=== PATIENT | female | born 1955 | race Caucasian/White ===

== ENCOUNTER 2018-10-19 11:09 | Inpatient (IN) | payer MEDICAID, OTHER ==
[~2018-10-19] VITALS: Ht 165.1 cm; Wt 86.2 kg
[~2018-10-19 11:09] MED LIST: ARIP10TA10; DULO60CA6; GABA300C; HYDR-1666; MONT10TA21; MULT1TAB21; NAPR-985; PHEN100C; [UNRECOGNIZED DRUG - CODE]; [UNRECOGNIZED DRUG - CODE]
--- NOTE | 2018-10-19 12:18 | ERD ---
ER Documentation Chief Complaint Chief Complaint chronic lower back pain, sent by surgeon, Dr Chester CHAHAL The patient is a 62-year-old female, presenting to the ER for admission for back surgery, sent to the ER by neurosurgeon Dr. Briggs. She has history of chronic low back pain, under pain management physician. However she is unable to tolerate the back pain any longer and wanted surgery. She denies fecal/urinary incontinence, denies fever, chills, neck pain, chest pain, abdominal pain, vomiting, complains of chronic bilateral lower extremity pain. She does not smoke nor drink denies any history of IV drug abuse. Past medical history: Asthma, chronic low back pain, chronic pain syndrome, bipolar, depression Past surgical history: Appendectomy, brain aneurysm ROS All systems reviewed and are negative except as per history of present illness. Medications Home Meds Reported Medications [Sodium ] No Conflict Check 10/19/18 Phenytoin* Sodium Extended (Dilantin*) 200 Mg Capsule, 200 MG PO BID, CAP 10/19/18 Aripiprazole* (Abilify*) 10 Mg Tablet, 10 MG PO DAILY, #30 TAB 10/19/18 Quetiapine Fumarate* (Seroquel*) 25 Mg Tablet, 25 MG PO DAILY, #30 TAB 10/19/18 Gabapentin* (Gabapentin*) 800 Mg Tablet, 800 MG PO BID, #90 TAB 10/19/18 Albuterol Sulfate* (Ventolin HFA*) 18 Gm Hfa.aer.ad, 2 PUFF INHALATION Q4H, #1 INHALER 10/19/18 Hydrochlorothiazide* (Hydrochlorothiazide*) 12.5 Mg Tablet, 12.5 MG PO DAILY, #30 TAB 10/19/18 Fluticasone/Vilanterol (Breo Ellipta 200-25 Mcg INH) 1 Each Blst.w.dev, 1 PUFF INHALATION DAILY, #1 INHALER 10/19/18 Omeprazole* (Omeprazole*) 20 Mg Capsule.dr, 20 MG PO DAILY, #30 CAP 10/19/18 Phenytoin* Sodium Extended (Dilantin*) 100 Mg Capsule, 200 MG PO BID, CAP 10/19/18 Duloxetine Hcl* (Duloxetine Hcl*) 60 Mg Capsule.dr, 120 MG PO DAILY, #30 CAP 10/19/18 Trazodone Hcl* (Desyrel*) 100 Mg Tab, 100 MG PO QHS, #30 TAB 10/19/18 Lamotrigine* (Lamotrigine*) 150 Mg Tablet, 150 MG PO BID, TAB 10/19/18 Ibuprofen* (Ibuprofen*) 800 Mg Tab, 800 MG PO TID, TAB 10/19/18 Docusate Sodium* (Colace*) 100 Mg Capsule, 100 MG PO DAILY, #30 CAP 10/19/18 Discontinued Reported Medications Hydrocodone Bit/Acetaminophen (Vicodin 5/500 Tablet) 1 Tab Tablet 12/14/10 Baclofen* (Lioresal*) 20 Mg Tab 12/14/10 Phenytoin* Sodium Extended (Dilantin*) 100 Mg Capsule 12/14/10 Naproxen* (Naprosyn*) 500 Mg Tablet 12/14/10 Multivitamins,Therapeutic (Theragran) 1 Tab Tablet 12/14/10 Montelukast Sodium* (Singulair*) 10 Mg Tablet 12/14/10 Gabapentin* (Neurontin*) 300 Mg Capsule 12/14/10 Duloxetine Hcl* (Cymbalta*) 60 Mg Capsule. 12/14/10 Calcium Carb/Vit D3/Minerals (Caltrate-600 With Vit D Tab) 1 Tab Tablet 12/14/10 Aripiprazole* (Abilify*) 10 Mg Tablet 12/14/10 Allergies Allergies: Coded Allergies: Penicillins (Verified Allergy, Mild, RASHES, 10/19/18) PMhx/Soc History of Surgery: Yes (BENIGN L BREAST TUMOR, APPY,3 VAG DELIVERIES) Anesthesia Reaction: No Hx Neurological Disorder: No Hx Respiratory Disorders: Yes (ASTHMA, 2 WEEKS AGO FOR INHALER) Hx Cardiac Disorders: No Hx Miscellaneous Medical Probl: No Hx Alcohol Use: No Hx Substance Use: No Hx Tobacco Use: Yes (QUIT 10 YEARS AGO) Physical Exam Vitals Vital Signs Date Temp Pulse Resp B/P (MAP) Pulse Ox O2 O2 Flow FiO2 Time Delivery Rate 10/19/18 85 18 150/75 97 Room Air 14:30 (100) 10/19/18 86 18 164/86 97 Room Air 12:37 (112) 10/19/18 98.4 82 18 168/86 95 11:20 (113) Physical Exam Const: No acute distress. Head: Atraumatic. Eyes: Normal Conjunctiva. ENT: Normal External Ears, Nose and Mouth. Neck: Full range of motion. No meningismus. Resp: Clear to auscultation bilaterally. Cardio: Regular rate and rhythm. Abd: Soft, non distended, normal bowel sounds, non tender. Skin: No petechiae or rashes. Back: Lumbar tenderness. No crepitus/echymosis Ext: No cyanosis, or edema. Neur: Awake and alert. No focal deficit Psych: Normal Mood and Affect. Result Diagram: 10/19/18 1259 10/19/18 1259 Results 24 hrs Laboratory Tests Test 10/19/18 12:59 White Blood Count 10.2 10^3/ul Red Blood Count 4.48 10^6/ul Hemoglobin 13.5 g/dl Hematocrit 39.4 % Mean Corpuscular Volume 87.9 fl Mean Corpuscular Hemoglobin 30.1 pg Mean Corpuscular Hemoglobin Concent 34.3 g/dl Red Cell Distribution Width 12.6 % Platelet Count 218 10^3/UL Mean Platelet Volume 8.7 fl Immature Granulocytes % 0.600 % Neutrophils % 70.2 % Lymphocytes % 19.9 % Monocytes % 7.4 % Eosinophils % 1.3 % Basophils % 0.6 % Nucleated Red Blood Cells % 0.0 /100WBC Immature Granulocytes # 0.060 10^3/ul Neutrophils # 7.2 10^3/ul Lymphocytes # 2.0 10^3/ul Monocytes # 0.8 10^3/ul Eosinophils # 0.1 10^3/ul Basophils # 0.1 10^3/ul Nucleated Red Blood Cells # 0.0 10^3/ul Sodium Level 136 mmol/L Potassium Level 3.7 mmol/L Chloride Level 100 mmol/L Carbon Dioxide Level 28 mmol/L Anion Gap 8 Blood Urea Nitrogen 10 mg/dl Creatinine 0.50 mg/dl Est Glomerular Filtrat Rate mL/min > 60 mL/min Glucose Level 79 mg/dl Calcium Level 9.4 mg/dl Procedures/[facility] MEDICAL MAKING DECISION: The patient is a 62-year-old female, presenting with acute intractable back pain, was treated with [place] 10 mg p.o. for pain with good response The differential diagnoses considered include but are not limited to caudal equina syndrome, spinal abscess, DJD, diskitis, lumbar radiculopathy. Consultation: I discussed the patient with her neurosurgeon Dr. Briggs, who would like to admit her for surgical intervention EKG: Read by emergency physician Rate/Rhythm: Normal Sinus Rhythm 84 beats/min QRS, ST, T-waves: No ST elevation, no T inversion Impression: Normal EKG Departure Diagnosis: Primary Impression: Intractable back pain Condition: Stable Comments I discussed the findings with the patient. I discussed the patient with the hospitalist Dr Hernandez at 3pm who was made aware of the lab, the treatment, the patient condition. The patient is admitted to [facility] Disclaimer: Inadvertent spelling and grammatical errors are likely due to EHR/dictation software use and do not reflect on the overall quality of patient care. Also, please note that the electronic time recorded on this note does not necessarily reflect the actual time of the patient encounter. BRANDT GIBBS MD Oct 19, 2018 12:18
[2018-10-19] MEDS ORDERED: IBUP-1545 PO (13:21)
[2018-10-19] MEDS ORDERED: DOCU-144 PO (13:21)
[2018-10-19] MEDS ORDERED: DULO60CA59 PO (13:22)
[2018-10-19] MEDS ORDERED: TRAZ-150 PO (13:22)
[2018-10-19] MEDS ORDERED: LAMO150T2 PO (13:22)
[2018-10-19] MEDS ORDERED: PHEN100C PO (13:23)
[2018-10-19] MEDS ORDERED: FLUT1BLS INHALATION (13:24)
[2018-10-19] MEDS ORDERED: HYDR12.58 PO (13:24)
[2018-10-19] MEDS ORDERED: OMEP20CA16 PO (13:24)
[2018-10-19] MEDS ORDERED: GABA-528 PO (13:25)
[2018-10-19] MEDS ORDERED: ALBU18HF INHALATION (13:25)
[2018-10-19] MEDS ORDERED: QUET25TA PO (13:26)
[2018-10-19] MEDS ORDERED: HYDROCODONE/APAP (10/325) TAB PO ONE (15:30)
[2018-10-19 17:36] VITALS: Ht 165.1 cm; Wt 86.2 kg
[2018-10-19] MEDS ORDERED: SODIUM (17:55)
[2018-10-19] MEDS ORDERED: PHEN200C PO (17:55)
[2018-10-19] MEDS ORDERED: ARIP10TA12 PO (17:55)
--- NOTE | 2018-10-19 18:15 | HP ---
Date/Time of Note Date/Time of Note DATE: 10/19/18 TIME: 18:13 Assessment/Plan VTE Prophylaxis SCD applied (from Nsg): Yes Pharmacological prophylaxis: NA/contraindicated Pharm contraindication: surgical contra Lines/Catheters IV Catheter Type (from Nrsg): Saline Lock Urinary Cath still in place: No Assessment/Plan Assessment/Plan -Intractable low back pain secondary to degenerative joint disease of the lumbar spine. Continue [place] and morphine as needed for pain Dr. Briggs is following in neurosurgery consultation. -Hypertension -Asthma, continue Brio Ellipta -Bipolar disorder, continue Cymbalta and Abilify Further recommendations based on clinical course. Plan of care discussed with Dr. Xavier. Result Diagram: 10/19/18 1259 10/19/18 1259 Results 24hrs Laboratory Tests Test 10/19/18 12:59 White Blood Count 10.2 Red Blood Count 4.48 Hemoglobin 13.5 Hematocrit 39.4 Mean Corpuscular Volume 87.9 Mean Corpuscular Hemoglobin 30.1 Mean Corpuscular Hemoglobin Concent 34.3 Red Cell Distribution Width 12.6 Platelet Count 218 Mean Platelet Volume 8.7 Immature Granulocytes % 0.600 H Neutrophils % 70.2 Lymphocytes % 19.9 Monocytes % 7.4 Eosinophils % 1.3 Basophils % 0.6 Nucleated Red Blood Cells % 0.0 Immature Granulocytes # 0.060 H Neutrophils # 7.2 Lymphocytes # 2.0 Monocytes # 0.8 Eosinophils # 0.1 Basophils # 0.1 Nucleated Red Blood Cells # 0.0 Sodium Level 136 Potassium Level 3.7 Chloride Level 100 Carbon Dioxide Level 28 Anion Gap 8 Blood Urea Nitrogen 10 Creatinine 0.50 Est Glomerular Filtrat Rate mL/min > 60 Glucose Level 79 Calcium Level 9.4 HPI/ROS Admit Date/Time Admit Date/Time Oct 19, 2018 at 15:02 Hx of Present Illness Patient is 62-year-old female with history of chronic lower back pain, history of asthma,depression and bipolar disorder, hypertension, history of intracranial hematoma status post evacuation at [facility] in 1999 for which patient on Dilantin for last 19 years, details of operation are not available. Patient has a long history of chronic lower back pain which got significantly worse over last months, patient failed conservative management with pain medication and physical therapy and patient was evaluated by Dr. Briggs in neurosurgery consultation. Patient underwent MRI of the lumbar spine and referred by neurosurgeon to emergency room. Patient complains of severe lower abdominal pain, however, denies any chest pain denies shortness of breath denies nausea vomiting diarrhea. Patient will be admitted for further evaluation and management. ROS 12 point review of system is negative except for what mentioned in HPI PMH/Family/Social Past Medical History Medical History: hypertension, other (Small, depression, bipolar disorder, history of intracranial hematoma status post evacuation of hematoma) Coded Allergies: Penicillins (Verified Allergy, Mild, RASHES, 10/19/18) Past Surgical History Past Surgical Hx: other (Status post evacuation of intracranial hematoma in 1999 at [facility]) Family History Significant Family History: no pertinent family hx Social History Alcohol Use: none Smoking Status: Never smoker Drug Use: none Exam/Review of Systems Vital Signs Vitals Vital Signs Date Temp Pulse Resp B/P (MAP) Pulse Ox O2 O2 Flow FiO2 Time Delivery Rate 10/19/18 83 18 148/74 93 Room Air 16:40 (98) 10/19/18 98.4 11:20 Exam Constitutional: alert, oriented Head: normocephalic Neck: supple Respiratory: clear to auscultation Cardiovascular: nl pulses Gastrointestinal: soft, non-tender Musculoskeletal: other (Low back pain with radiation to bilateral lower extremities) Extremities: normal pulses Neurological: nl mental status Skin: nl MICK Laird Oct 19, 2018 18:15
[2018-10-19] MEDS ORDERED: HYDROCODONE/APAP (5/325) TAB PO PRN (18:30)
[2018-10-19] MEDS ORDERED: DOCUSATE SODIUM 100 MG CAP PO PRN (18:30)
[2018-10-19] MEDS ORDERED: [UNRECOGNIZED DRUG - OTHER] XX SCH (20:00)
[2018-10-19 20:02] VITALS: BP 162/77; PULSE 73; RESP 18
[2018-10-19] MEDS ORDERED: PHENYTOIN 100 MG CAP PO SCH (21:00)
[2018-10-19] MEDS ORDERED: ALBUTEROL HFA 8 GM INHALER INH SCH (21:00)
[2018-10-19] MEDS: IBUPROFEN 800 MG TAB PO SCH (21:05)
[2018-10-19] MEDS: GABAPENTIN 400 MG CAP PO SCH (21:05)
[2018-10-19] MEDS: SODIUM CHLORIDE 5% BOTH EYES SCH (21:05)
[2018-10-19] MEDS: LAMOTRIGINE 100 MG TAB PO SCH (21:06)
[2018-10-19] MEDS: FAMOTIDINE 20 MG TAB PO SCH (21:06)
[2018-10-19] MEDS: traZODone 100 MG TAB PO SCH (21:06)
[2018-10-19] MEDS: PHENYTOIN 100 MG CAP PO SCH (21:06)
[2018-10-20 01:57] VITALS: BP 170/77; PULSE 80; RESP 18
[2018-10-20] MEDS: HYDROCODONE/APAP (5/325) TAB PO PRN ×2 (04:43→12:12)
[2018-10-20] MEDS ORDERED: PANTOPRAZOLE (EC) 40 MG TAB PO SCH (06:00)
[2018-10-20 07:49] VITALS: BP 163/111; PULSE 73; RESP 19
[2018-10-20] MEDS: QUETIAPINE 25 MG TAB PO SCH (09:00)
[2018-10-20] MEDS: IBUPROFEN 800 MG TAB PO SCH ×2 (09:17→13:00)
[2018-10-20] MEDS: PHENYTOIN 100 MG CAP PO SCH ×2 (09:18→20:35)
[2018-10-20] MEDS: DOCUSATE SODIUM 100 MG CAP PO SCH (09:19)
[2018-10-20] MEDS: ARIPIPRAZOLE 10 MG TAB PO SCH (09:19)
[2018-10-20] MEDS: DULOXETINE 30 MG CAP DR PO SCH (09:19)
[2018-10-20] MEDS: GABAPENTIN 400 MG CAP PO SCH ×2 (09:20→20:35)
[2018-10-20] MEDS: FAMOTIDINE 20 MG TAB PO SCH ×2 (09:20→20:35)
[2018-10-20] MEDS: LAMOTRIGINE 100 MG TAB PO SCH ×2 (09:21→20:36)
[2018-10-20] MEDS: HYDROCHLOROTHIAZIDE 12.5 MG CAP PO SCH (09:21)
[2018-10-20] MEDS: morphine 2 MG INJ IV PRN ×3 (09:22→21:22)
[2018-10-20] MEDS: FLUTICASONE/VILANTEROL 200-25 INH DEVICE INH SCH (09:22)
[2018-10-20] MEDS: SODIUM CHLORIDE 5% BOTH EYES SCH ×2 (09:22→20:25)
[2018-10-20 09:28] VITALS: BP 148/67
--- NOTE | 2018-10-20 11:45 | PN ---
Date/Time of Note Date/Time of Note DATE: 10/20/18 TIME: 11:43 Assessment/Plan VTE Prophylaxis Risk score (from Ns)>0 risk: 3 SCD applied (from Ns): Yes Pharmacological prophylaxis: NA/contraindicated Pharm contraindication: surgical contra Lines/Catheters IV Catheter Type (from Nrsg): Saline Lock Urinary Cath still in place: No Assessment/Plan Hospital Course Patient is awake alert stated that her pain is better controlled on current regimen, awaits for neurosurgery evaluation. Assessment/Plan -Intractable low back pain secondary to degenerative joint disease of the lumbar spine. Continue [place] and morphine as needed for pain Dr. Briggs is following in neurosurgery consultation. -Hypertension, renew hydralazine as needed. -Asthma, continue Brio Ellipta -Bipolar disorder, continue Cymbalta and Abilify Further recommendations based on clinical course. Plan of care discussed with Dr. Xavier. Result Diagram: 10/20/187 10/20/187 Results 24hrs Laboratory Tests Test 10/19/18 12:59 10/20/18 04:47 White Blood Count 10.2 7.2 # Red Blood Count 4.48 4.42 Hemoglobin 13.5 13.6 Hematocrit 39.4 39.3 Mean Corpuscular Volume 87.9 88.9 Mean Corpuscular Hemoglobin 30.1 30.8 Mean Corpuscular Hemoglobin Concent 34.3 34.6 Red Cell Distribution Width 12.6 12.7 Platelet Count 218 211 Mean Platelet Volume 8.7 8.6 Immature Granulocytes % 0.600 H 0.600 H Neutrophils % 70.2 58.7 Lymphocytes % 19.9 30.4 Monocytes % 7.4 7.3 Eosinophils % 1.3 2.3 Basophils % 0.6 0.7 Nucleated Red Blood Cells % 0.0 0.0 Immature Granulocytes # 0.060 H 0.040 H Neutrophils # 7.2 4.3 Lymphocytes # 2.0 2.2 Monocytes # 0.8 0.5 Eosinophils # 0.1 0.2 Basophils # 0.1 0.1 Nucleated Red Blood Cells # 0.0 0.0 Sodium Level 136 140 Potassium Level 3.7 3.5 Chloride Level 100 103 Carbon Dioxide Level 28 29 Anion Gap 8 8 Blood Urea Nitrogen 10 8 Creatinine 0.50 0.46 Est Glomerular Filtrat Rate mL/min > 60 > 60 Glucose Level 79 90 Calcium Level 9.4 9.5 Total Bilirubin 0.3 Direct Bilirubin 0.00 Indirect Bilirubin 0.3 Aspartate Amino Transf (AST/SGOT) 13 L Alanine Aminotransferase (ALT/SGPT) 11 L Alkaline Phosphatase 105 Total Protein 6.4 Albumin 3.7 Globulin 2.70 Albumin/Globulin Ratio 1.37 Exam/Review of Systems Exam Vitals Vital Signs Date Temp Pulse Resp B/P (MAP) Pulse Ox O2 O2 Flow FiO2 Time Delivery Rate 10/20/18 148/67 09:28 (94) 10/20/18 98.2 73 19 98 Room Air 07:49 Intake and Output 10/19/18 10/19/18 10/20/18 1515:00 23:00 07:00 IntakeIntake Total 480 ml 460 ml BalanceBalance 480 ml 460 ml Constitutional: alert, oriented Respiratory: clear to auscultation Cardiovascular: nl pulses Gastrointestinal: soft, non-tender Musculoskeletal: other (Low back pain) Extremities: normal pulses Neurological: nl mental status Results Results 24hrs Laboratory Tests Test 10/19/18 12:59 10/20/18 04:47 White Blood Count 10.2 7.2 # Red Blood Count 4.48 4.42 Hemoglobin 13.5 13.6 Hematocrit 39.4 39.3 Mean Corpuscular Volume 87.9 88.9 Mean Corpuscular Hemoglobin 30.1 30.8 Mean Corpuscular Hemoglobin Concent 34.3 34.6 Red Cell Distribution Width 12.6 12.7 Platelet Count 218 211 Mean Platelet Volume 8.7 8.6 Immature Granulocytes % 0.600 H 0.600 H Neutrophils % 70.2 58.7 Lymphocytes % 19.9 30.4 Monocytes % 7.4 7.3 Eosinophils % 1.3 2.3 Basophils % 0.6 0.7 Nucleated Red Blood Cells % 0.0 0.0 Immature Granulocytes # 0.060 H 0.040 H Neutrophils # 7.2 4.3 Lymphocytes # 2.0 2.2 Monocytes # 0.8 0.5 Eosinophils # 0.1 0.2 Basophils # 0.1 0.1 Nucleated Red Blood Cells # 0.0 0.0 Sodium Level 136 140 Potassium Level 3.7 3.5 Chloride Level 100 103 Carbon Dioxide Level 28 29 Anion Gap 8 8 Blood Urea Nitrogen 10 8 Creatinine 0.50 0.46 Est Glomerular Filtrat Rate mL/min > 60 > 60 Glucose Level 79 90 Calcium Level 9.4 9.5 Total Bilirubin 0.3 Direct Bilirubin 0.00 Indirect Bilirubin 0.3 Aspartate Amino Transf (AST/SGOT) 13 L Alanine Aminotransferase (ALT/SGPT) 11 L Alkaline Phosphatase 105 Total Protein 6.4 Albumin 3.7 Globulin 2.70 Albumin/Globulin Ratio 1.37 Medications Medication Current Medications Ondansetron HCl (Zofran Inj) 4 mg Q6H PRN IV NAUSEA/VOMITING; Start 10/19/18 at 18:30 Acetaminophen/ Hydrocodone Bitart ([place] (5/325)) 1 tab Q6H PRN PO .MOD PAIN 4- 6; Start 10/19/18 at 18:30 Acetaminophen/ Hydrocodone Bitart ([place] (5/325)) 2 tab Q6H PRN PO .SEVERE PAIN 7-10 Last administered on 10/20/18at 04:43; Admin Dose 2 TAB; Start 10/19/18 at 18:30 Morphine Sulfate (morphine) 2 mg Q4H PRN IV .SEVERE PAIN 7-10 Last administered on 10/20/18at 09:22; Admin Dose 2 MG; Start 10/19/18 at 18:30 Docusate Sodium (Colace) 100 mg Q12H PRN PO .CONSTIPATION; Start 10/19/18 at 18:30 Zolpidem Tartrate (Ambien) 5 mg QHS PRN PO .INSOMNIA; Start 10/19/18 at 18:30 Famotidine (Pepcid) 20 mg Q12 PO Last administered on 10/20/18 09:20; Admin Dose 20 MG; Start 10/19/18 at 21:00 Aripiprazole (Abilify) 10 mg DAILY PO Last administered on 10/20/18 09:19; Admin Dose 10 MG; Start 10/20/18 at 09:00 Docusate Sodium (Colace) 100 mg DAILY PO Last administered on 10/20/18 09:19; Admin Dose 100 MG; Start 10/20/18 at 09:00 Duloxetine HCl (Cymbalta) 120 mg DAILY PO Last administered on 10/20/18 09:19; Admin Dose 120 MG; Start 10/20/18 at 09:00 Fluticasone/ Vilanterol (Breo Ellipta 200-25 Mcg Inh) 1 inh DAILY INH Last administered on 10/20/18 09:22; Admin Dose 1 INH; Start 10/20/18 at 09:00 Gabapentin (Neurontin) 800 mg BID PO Last administered on 10/20/18 09:20; Admin Dose 800 MG; Start 10/19/18 at 21:00 Hydrochlorothiazide (Hydrochlorothiazide) 12.5 mg DAILY PO Last administered on 10/20/18 09:21; Admin Dose 12.5 MG; Start 10/20/18 at 09:00 Ibuprofen (Motrin) 800 mg TID PO Last administered on 10/20/18 09:17; Admin Dose 800 MG; Start 10/19/18 at 21:00 Lamotrigine (Lamictal) 150 mg BID PO Last administered on 10/20/18 09:21; Admin Dose 150 MG; Start 10/19/18 at 21:00 Phenytoin (Dilantin) 200 mg BID PO Last administered on 10/20/18 09:18; Admin Dose 200 MG; Start 10/19/18 at 21:00 Quetiapine Fumarate (Seroquel) 25 mg DAILY PO ; Start 10/20/18 at 09:00 Trazodone HCl (Desyrel) 100 mg QHS PO Last administered on 10/19/18 21:06; Admin Dose 100 MG; Start 10/19/18 at 21:00 Patient Own Medication 1 ea BID BOTH EYES Last administered on 10/20/18 09:22; Admin Dose 1 EA; Start 10/19/18 at 21:00 Patient Own Medication 1 ea QHS BOTH EYES Last administered on 10/19/18 21:05; Admin Dose 1 EA; Start 10/19/18 at 21:00 Albuterol (Ventolin Hfa) 2 puff Q4H PRN INH SHORTNESS OF BREATH; Start 10/19/18 at 21:30 MICK MCHUGH Oct 20, 2018 11:45
[2018-10-20] MEDS ORDERED: hydrALAzine 20 MG INJ IV PRN (12:00)
[2018-10-20] MEDS: AMLODIPINE 5 MG TAB PO SCH (13:09)
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
[2018-10-20 20:16] VITALS: BP 136/62; PULSE 73; RESP 18
[2018-10-20] MEDS: traZODone 100 MG TAB PO SCH (20:35)
[2018-10-21 02:14] VITALS: BP 138/79; PULSE 76; RESP 18
[2018-10-21] MEDS: morphine 2 MG INJ IV PRN ×3 (02:28→15:09)
[2018-10-21] MEDS: HYDROCODONE/APAP (5/325) TAB PO PRN ×2 (06:38→20:39)
[2018-10-21 07:54] VITALS: BP 132/75; PULSE 74; RESP 18
[2018-10-21] MEDS: PHENYTOIN 100 MG CAP PO SCH ×2 (08:54→21:17)
[2018-10-21] MEDS: LAMOTRIGINE 100 MG TAB PO SCH ×2 (08:55→21:16)
[2018-10-21] MEDS: AMLODIPINE 5 MG TAB PO SCH (08:57)
[2018-10-21] MEDS: QUETIAPINE 25 MG TAB PO SCH ×2 (08:57→21:17)
[2018-10-21] MEDS: HYDROCHLOROTHIAZIDE 12.5 MG CAP PO SCH (08:57)
[2018-10-21] MEDS: SODIUM CHLORIDE 5% BOTH EYES SCH ×2 (08:58→21:21)
--- NOTE | 2018-10-21 11:16 | PN ---
Date/Time of Note Date/Time of Note DATE: 10/21/18 TIME: 11:10 Assessment/Plan VTE Prophylaxis Risk score (from Nsg)>0 risk: 4 SCD applied (from Nsg): Yes SCD contraindicated: low risk/ambulating Pharmacological prophylaxis: NA/contraindicated Pharm contraindication: low risk/ambulating Lines/Catheters IV Catheter Type (from Nrsg): Saline Lock [place] line still needed: No Urinary Cath still in place: No Assessment/Plan Assessment/Plan Impression Mechanical LBP with LE Radiculopathy (left > right) Ibuprofen 800mg TID x 2-3 weeks prior to admission Plan cont supportive care discussed with Dr. Raphael and Dr. Briggs, both agree to hold off on surgery until Friday due to recent Ibuprofen intake #1 ALIF L2- S1 Friday at 8am #2 Posterior L2-S1 decompression and fusion to follow in 1-2 days, possibly Friday depending on OR availability will likely need pain management consult post operatively Extensive d/w patient about all available options including surgery vs no surgery. Overall risk/complications 3-5% as preprinted in Dr. Briggs;s preop consent form thoroughly discussed. All questions answered and no guarantees given. Result Diagram: 10/20/1844610/20/18446 Subjective 24 Hr Interval Summary Free Text/Dictation Neurosurgery S: NAD Exam/Review of Systems Exam Vitals Vital Signs Date Temp Pulse Resp B/P (MAP) Pulse Ox O2 O2 Flow FiO2 Time Delivery Rate 10/21/18 98.2 74 18 132/75 94 Room Air 07:54 (94) Intake and Output 10/20/18 10/20/18 10/21/18 1515:00 23:00 07:00 IntakeIntake Total 120 ml 420 ml BalanceBalance 120 ml 420 ml Neurological: other (MS: AAOX4 CN: PERRL M: FC x 4 , no new focal def. ) Medications Medication Current Medications Ondansetron HCl (Zofran Inj) 4 mg Q6H PRN IV NAUSEA/VOMITING; Start 10/19/18 at 18:30 Acetaminophen/ Hydrocodone Bitart ([place] (5/325)) 1 tab Q6H PRN PO .MOD PAIN 4- 6; Start 10/19/18 at 18:30 Acetaminophen/ Hydrocodone Bitart ([place] (5/325)) 2 tab Q6H PRN PO .SEVERE PAIN 7-10 Last administered on 10/21/18 06:38; Admin Dose 2 TAB; Start 10/19/18 at 18:30 Morphine Sulfate (morphine) 2 mg Q4H PRN IV .SEVERE PAIN 7-10 Last administered on 10/21/18 10:21; Admin Dose 2 MG; Start 10/19/18 at 18:30 Docusate Sodium (Colace) 100 mg Q12H PRN PO .CONSTIPATION; Start 10/19/18 at 18:30 Zolpidem Tartrate (Ambien) 5 mg QHS PRN PO .INSOMNIA; Start 10/19/18 at 18:30 Famotidine (Pepcid) 20 mg Q12 PO Last administered on 10/20/18 20:35; Admin Dose 20 MG; Start 10/19/18 at 21:00 Aripiprazole (Abilify) 10 mg DAILY PO Last administered on 10/20/18 09:19; Admin Dose 10 MG; Start 10/20/18 at 09:00 Docusate Sodium (Colace) 100 mg DAILY PO Last administered on 10/20/18 09:19; Admin Dose 100 MG; Start 10/20/18 at 09:00 Duloxetine HCl (Cymbalta) 120 mg DAILY PO Last administered on 10/20/18 09:19; Admin Dose 120 MG; Start 10/20/18 at 09:00 Fluticasone/ Vilanterol (Breo Ellipta 200-25 Mcg Inh) 1 inh DAILY INH Last administered on 10/20/18 09:22; Admin Dose 1 INH; Start 10/20/18 at 09:00 Gabapentin (Neurontin) 800 mg BID PO Last administered on 10/20/18 20:35; Admin Dose 800 MG; Start 10/19/18 at 21:00 Hydrochlorothiazide (Hydrochlorothiazide) 12.5 mg DAILY PO Last administered on 10/21/18 08:57; Admin Dose 12.5 MG; Start 10/20/18 at 09:00 Lamotrigine (Lamictal) 150 mg BID PO Last administered on 10/21/18 08:55; Admin Dose 150 MG; Start 10/19/18 at 21:00 Phenytoin (Dilantin) 200 mg BID PO Last administered on 10/21/18 08:54; Admin Dose 200 MG; Start 10/19/18 at 21:00 Quetiapine Fumarate (Seroquel) 25 mg DAILY PO Last administered on 10/21/18 08:57; Admin Dose 25 MG; Start 10/20/18 at 09:00 Trazodone HCl (Desyrel) 100 mg QHS PO Last administered on 10/20/18 20:35; Admin Dose 100 MG; Start 10/19/18 at 21:00 Patient Own Medication 1 ea BID BOTH EYES Last administered on 10/21/18 08:58; Admin Dose 1 EA; Start 10/19/18 at 21:00 Patient Own Medication 1 ea QHS BOTH EYES Last administered on 10/20/18 20:25; Admin Dose 1 EA; Start 10/19/18 at 21:00 Albuterol (Ventolin Hfa) 2 puff Q4H PRN INH SHORTNESS OF BREATH; Start 10/19/18 at 21:30 Amlodipine Besylate (Norvasc) 5 mg DAILY PO Last administered on 10/21/18 08:57; Admin Dose 5 MG; Start 10/20/18 at 12:00 Hydralazine HCl (Apresoline) 10 mg Q6H PRN IV SBP>170; Start 10/20/18 at 12:00 Hydromorphone HCl (Dilaudid) 0.5 mg Q4H PRN IV SEVERE PAIN LEVEL 7-10; Start 10/20/18 at 13:30 MARÍA RUIZ NP Oct 21, 2018 11:16
[2018-10-21] MEDS: GABAPENTIN 400 MG CAP PO SCH ×2 (11:34→21:17)
[2018-10-21] MEDS: HYDROmorphONE 0.5 MG/0.5 ML SYG IV PRN ×3 (11:34→18:59)
[2018-10-21] MEDS: FAMOTIDINE 20 MG TAB PO SCH ×2 (11:37→21:17)
[2018-10-21] MEDS: ARIPIPRAZOLE 10 MG TAB PO SCH (11:37)
[2018-10-21] MEDS: FLUTICASONE/VILANTEROL 200-25 INH DEVICE INH SCH (11:38)
[2018-10-21] MEDS: DOCUSATE SODIUM 100 MG CAP PO SCH (11:38)
[2018-10-21] MEDS: DULOXETINE 30 MG CAP DR PO SCH ×2 (11:49→21:18)
--- NOTE | 2018-10-21 14:08 | PN ---
Date/Time of Note Date/Time of Note DATE: 10/21/18 TIME: 14:05 Assessment/Plan VTE Prophylaxis Risk score (from Ns)>0 risk: 4 SCD applied (from Ns): Yes Pharmacological prophylaxis: NA/contraindicated Pharm contraindication: surgical contra Lines/Catheters IV Catheter Type (from Nrsg): Saline Lock Urinary Cath still in place: No Assessment/Plan Hospital Course No acute events overnight, pain is under control while patient is at rest, plan for lumbar surgery on Friday. Assessment/Plan -Intractable low back pain secondary to degenerative joint disease of the lumbar spine. Continue [place] and morphine as needed for pain Dr. Briggs is following in neurosurgery consultation. -Hypertension, renew hydralazine as needed. -Asthma, continue Brio Ellipta -Bipolar disorder, continue Cymbalta and Abilify Further recommendations based on clinical course. Plan of care discussed with Dr. Xavier. Result Diagram: 10/20/1844610/20/18446 Exam/Review of Systems Exam Vitals Vital Signs Date Temp Pulse Resp B/P (MAP) Pulse Ox O2 O2 Flow FiO2 Time Delivery Rate 10/21/18 98.2 74 18 132/75 94 Room Air 07:54 (94) Intake and Output 10/20/18 10/20/18 10/21/18 1515:00 23:00 07:00 IntakeIntake Total 120 ml 420 ml BalanceBalance 120 ml 420 ml Exam Constitutional: alert, oriented Respiratory: clear to auscultation Cardiovascular: nl pulses Gastrointestinal: soft, non-tender Musculoskeletal: other (Low back pain) Extremities: normal pulses Neurological: nl mental status Medications Medication Current Medications Ondansetron HCl (Zofran Inj) 4 mg Q6H PRN IV NAUSEA/VOMITING; Start 10/19/18 at 18:30 Acetaminophen/ Hydrocodone Bitart ([place] (5/325)) 1 tab Q6H PRN PO .MOD PAIN 4- 6; Start 10/19/18 at 18:30 Acetaminophen/ Hydrocodone Bitart ([place] (5/325)) 2 tab Q6H PRN PO .SEVERE PAIN 7-10 Last administered on 10/21/18at 06:38; Admin Dose 2 TAB; Start 10/19/18 at 18:30 Morphine Sulfate (morphine) 2 mg Q4H PRN IV .SEVERE PAIN 7-10 Last administered on 10/21/18 10:21; Admin Dose 2 MG; Start 10/19/18 at 18:30 Docusate Sodium (Colace) 100 mg Q12H PRN PO .CONSTIPATION; Start 10/19/18 at 18:30 Zolpidem Tartrate (Ambien) 5 mg QHS PRN PO .INSOMNIA; Start 10/19/18 at 18:30 Famotidine (Pepcid) 20 mg Q12 PO Last administered on 10/21/18 11:37; Admin Dose 20 MG; Start 10/19/18 at 21:00 Aripiprazole (Abilify) 10 mg DAILY PO Last administered on 10/21/18 11:37; Admin Dose 10 MG; Start 10/20/18 at 09:00 Docusate Sodium (Colace) 100 mg DAILY PO Last administered on 10/21/18 11:38; Admin Dose 100 MG; Start 10/20/18 at 09:00 Fluticasone/ Vilanterol (Breo Ellipta 200-25 Mcg Inh) 1 inh DAILY INH Last administered on 10/21/18 11:38; Admin Dose 1 INH; Start 10/20/18 at 09:00 Gabapentin (Neurontin) 800 mg BID PO Last administered on 10/21/18 11:34; Admin Dose 800 MG; Start 10/19/18 at 21:00 Hydrochlorothiazide (Hydrochlorothiazide) 12.5 mg DAILY PO Last administered on 10/21/18 08:57; Admin Dose 12.5 MG; Start 10/20/18 at 09:00 Lamotrigine (Lamictal) 150 mg BID PO Last administered on 10/21/18 08:55; Admin Dose 150 MG; Start 10/19/18 at 21:00 Phenytoin (Dilantin) 200 mg BID PO Last administered on 10/21/18 08:54; Admin Dose 200 MG; Start 10/19/18 at 21:00 Trazodone HCl (Desyrel) 100 mg QHS PO Last administered on 10/20/18 20:35; Admin Dose 100 MG; Start 10/19/18 at 21:00 Patient Own Medication 1 ea BID BOTH EYES Last administered on 10/21/18 08:58; Admin Dose 1 EA; Start 10/19/18 at 21:00 Patient Own Medication 1 ea QHS BOTH EYES Last administered on 10/20/18at 20:25; Admin Dose 1 EA; Start 10/19/18 at 21:00 Albuterol (Ventolin Hfa) 2 puff Q4H PRN INH SHORTNESS OF BREATH; Start 10/19/18 at 21:30 Amlodipine Besylate (Norvasc) 5 mg DAILY PO Last administered on 10/21/18at 08:57; Admin Dose 5 MG; Start 10/20/18 at 12:00 Hydralazine HCl (Apresoline) 10 mg Q6H PRN IV SBP>170; Start 10/20/18 at 12:00 Hydromorphone HCl (Dilaudid) 0.5 mg Q4H PRN IV SEVERE PAIN LEVEL 7-10 Last administered on 10/21/18at 12:24; Admin Dose 0.5 MG; Start 10/20/18 at 13:30 Duloxetine HCl (Cymbalta) 60 mg BID PO ; Start 10/21/18 at 21:00 Quetiapine Fumarate (Seroquel) 25 mg HS PO ; Start 10/21/18 at 21:00 MICK MCHUGH Oct 21, 2018 14:08
[2018-10-21 20:01] VITALS: BP 128/75; PULSE 77; RESP 20
[2018-10-21] MEDS: traZODone 100 MG TAB PO SCH (21:17)
[2018-10-21] MEDS: ALBUTEROL HFA 8 GM INHALER INH PRN (22:53)
[2018-10-22 02:14] VITALS: BP 122/71; PULSE 74; RESP 17
[2018-10-22] MEDS: HYDROCODONE/APAP (5/325) TAB PO PRN ×4 (04:18→23:15)
[2018-10-22] MEDS: HYDROmorphONE 0.5 MG/0.5 ML SYG IV PRN ×4 (07:48→20:09)
[2018-10-22 08:02] VITALS: BP 116/72; PULSE 70; RESP 18
[2018-10-22] MEDS: FLUTICASONE/VILANTEROL 200-25 INH DEVICE INH SCH (08:41)
[2018-10-22] MEDS: DULOXETINE 30 MG CAP DR PO SCH ×2 (08:41→20:11)
[2018-10-22] MEDS: LAMOTRIGINE 100 MG TAB PO SCH ×2 (08:41→20:10)
[2018-10-22] MEDS: FAMOTIDINE 20 MG TAB PO SCH ×2 (08:41→20:12)
[2018-10-22] MEDS: PHENYTOIN 100 MG CAP PO SCH ×2 (08:42→20:11)
[2018-10-22] MEDS: GABAPENTIN 400 MG CAP PO SCH ×2 (08:42→20:13)
[2018-10-22] MEDS: DOCUSATE SODIUM 100 MG CAP PO SCH (08:42)
[2018-10-22] MEDS: SODIUM CHLORIDE 5% BOTH EYES SCH ×2 (08:42→20:14)
[2018-10-22] MEDS: AMLODIPINE 5 MG TAB PO SCH (08:43)
[2018-10-22] MEDS: HYDROCHLOROTHIAZIDE 12.5 MG CAP PO SCH (08:44)
[2018-10-22] MEDS: ARIPIPRAZOLE 10 MG TAB PO SCH (10:18)
[2018-10-22 15:23] VITALS: BP 147/82; PULSE 77; RESP 18
--- NOTE | 2018-10-22 15:47 | PN ---
Date/Time of Note Date/Time of Note DATE: 10/22/18 TIME: 15:46 Assessment/Plan VTE Prophylaxis Risk score (from Ns)>0 risk: 3 SCD applied (from Ns): Yes Pharmacological prophylaxis: NA/contraindicated Pharm contraindication: surgical contra Lines/Catheters IV Catheter Type (from Nrsg): Saline Lock Urinary Cath still in place: No Assessment/Plan Hospital Course Patient is awake alert, remains hemodynamically stable, pain adequately controlled with [place] and Dilaudid, plan for lumbar surgery on Friday. Potassium replaced. Assessment/Plan -Intractable low back pain secondary to degenerative joint disease of the lumbar spine. Continue [place] and morphine as needed for pain Dr. Briggs is following in neurosurgery consultation. -Hypertension, renew hydralazine as needed. -Asthma, continue Brio Ellipta -Bipolar disorder, continue Cymbalta and Abilify Further recommendations based on clinical course. Plan of care discussed with Dr. Xavier. Result Diagram: 10/22/18 1125 10/22/18 1125 Results 24hrs Laboratory Tests Test 10/22/18 11:25 White Blood Count 8.9 # Red Blood Count 4.57 Hemoglobin 13.8 Hematocrit 40.4 Mean Corpuscular Volume 88.4 Mean Corpuscular Hemoglobin 30.2 Mean Corpuscular Hemoglobin Concent 34.2 Red Cell Distribution Width 12.8 Platelet Count 207 Mean Platelet Volume 8.5 Immature Granulocytes % 0.400 Neutrophils % 64.5 Lymphocytes % 24.4 Monocytes % 7.9 Eosinophils % 2.2 Basophils % 0.6 Nucleated Red Blood Cells % 0.0 Immature Granulocytes # 0.040 H Neutrophils # 5.7 Lymphocytes # 2.2 Monocytes # 0.7 Eosinophils # 0.2 Basophils # 0.1 Nucleated Red Blood Cells # 0.0 Prothrombin Time 12.7 Prothrombin Time Ratio 1.0 INR International Normalized Ratio 0.94 Activated Partial Thromboplast Time 29.6 Sodium Level 136 Potassium Level 3.2 L Chloride Level 97 Carbon Dioxide Level 31 Anion Gap 8 Blood Urea Nitrogen 8 Creatinine 0.46 Est Glomerular Filtrat Rate mL/min > 60 Glucose Level 127 Calcium Level 9.7 Exam/Review of Systems Exam Vitals Vital Signs Date Temp Pulse Resp B/P (MAP) Pulse Ox O2 O2 Flow FiO2 Time Delivery Rate 10/22/18 98.1 70 18 116/72 92 Room Air 08:02 (87) Intake and Output 10/21/18 10/21/18 10/22/18 1515:00 23:00 07:00 IntakeIntake Total 240 ml 320 ml BalanceBalance 240 ml 320 ml Exam Constitutional: alert, oriented Respiratory: clear to auscultation Cardiovascular: nl pulses Gastrointestinal: soft, non-tender Musculoskeletal: other (Low back pain) Extremities: normal pulses Neurological: nl mental status Results Results 24hrs Laboratory Tests Test 10/22/18 11:25 White Blood Count 8.9 # Red Blood Count 4.57 Hemoglobin 13.8 Hematocrit 40.4 Mean Corpuscular Volume 88.4 Mean Corpuscular Hemoglobin 30.2 Mean Corpuscular Hemoglobin Concent 34.2 Red Cell Distribution Width 12.8 Platelet Count 207 Mean Platelet Volume 8.5 Immature Granulocytes % 0.400 Neutrophils % 64.5 Lymphocytes % 24.4 Monocytes % 7.9 Eosinophils % 2.2 Basophils % 0.6 Nucleated Red Blood Cells % 0.0 Immature Granulocytes # 0.040 H Neutrophils # 5.7 Lymphocytes # 2.2 Monocytes # 0.7 Eosinophils # 0.2 Basophils # 0.1 Nucleated Red Blood Cells # 0.0 Prothrombin Time 12.7 Prothrombin Time Ratio 1.0 INR International Normalized Ratio 0.94 Activated Partial Thromboplast Time 29.6 Sodium Level 136 Potassium Level 3.2 L Chloride Level 97 Carbon Dioxide Level 31 Anion Gap 8 Blood Urea Nitrogen 8 Creatinine 0.46 Est Glomerular Filtrat Rate mL/min > 60 Glucose Level 127 Calcium Level 9.7 Medications Medication Current Medications Ondansetron HCl (Zofran Inj) 4 mg Q6H PRN IV NAUSEA/VOMITING; Start 10/19/18 at 18:30 Acetaminophen/ Hydrocodone Bitart ([place] (5/325)) 1 tab Q6H PRN PO .MOD PAIN 4- 6 Last administered on 10/21/18at 16:10; Admin Dose 1 TAB; Start 10/19/18 at 18:30 Acetaminophen/ Hydrocodone Bitart ([place] (5/325)) 2 tab Q6H PRN PO .SEVERE PAIN 7-10 Last administered on 10/22/18at 10:18; Admin Dose 2 TAB; Start 10/19/18 at 18:30 Morphine Sulfate (morphine) 2 mg Q4H PRN IV .SEVERE PAIN 7-10 Last administered on 10/21/18 15:09; Admin Dose 2 MG; Start 10/19/18 at 18:30 Docusate Sodium (Colace) 100 mg Q12H PRN PO .CONSTIPATION; Start 10/19/18 at 18:30 Zolpidem Tartrate (Ambien) 5 mg QHS PRN PO .INSOMNIA; Start 10/19/18 at 18:30 Famotidine (Pepcid) 20 mg Q12 PO Last administered on 10/22/18 08:41; Admin Dose 20 MG; Start 10/19/18 at 21:00 Aripiprazole (Abilify) 10 mg DAILY PO Last administered on 10/22/18 10:18; Admin Dose 10 MG; Start 10/20/18 at 09:00 Docusate Sodium (Colace) 100 mg DAILY PO Last administered on 10/22/18 08:42; Admin Dose 100 MG; Start 10/20/18 at 09:00 Fluticasone/ Vilanterol (Breo Ellipta 200-25 Mcg Inh) 1 inh DAILY INH Last administered on 10/22/18 08:41; Admin Dose 1 INH; Start 10/20/18 at 09:00 Gabapentin (Neurontin) 800 mg BID PO Last administered on 10/22/18 08:42; Admin Dose 800 MG; Start 10/19/18 at 21:00 Hydrochlorothiazide (Hydrochlorothiazide) 12.5 mg DAILY PO Last administered on 10/22/18 08:44; Admin Dose 12.5 MG; Start 10/20/18 at 09:00 Lamotrigine (Lamictal) 150 mg BID PO Last administered on 10/22/18 08:41; Admin Dose 150 MG; Start 10/19/18 at 21:00 Phenytoin (Dilantin) 200 mg BID PO Last administered on 10/22/18 08:42; Admin Dose 200 MG; Start 10/19/18 at 21:00 Trazodone HCl (Desyrel) 100 mg QHS PO Last administered on 10/21/18 21:17; Admin Dose 100 MG; Start 10/19/18 at 21:00 Patient Own Medication 1 ea BID BOTH EYES Last administered on 10/22/18 08:42; Admin Dose 1 EA; Start 10/19/18 at 21:00 Patient Own Medication 1 ea QHS BOTH EYES Last administered on 10/21/18 21:21; Admin Dose 1 EA; Start 10/19/18 at 21:00 Albuterol (Ventolin Hfa) 2 puff Q4H PRN INH SHORTNESS OF BREATH Last administ ered on 10/21/18 22:53; Admin Dose 2 PUFF; Start 10/19/18 at 21:30 Amlodipine Besylate (Norvasc) 5 mg DAILY PO Last administered on 10/22/18 08:43; Admin Dose 5 MG; Start 10/20/18 at 12:00 Hydralazine HCl (Apresoline) 10 mg Q6H PRN IV SBP>170; Start 10/20/18 at 12:00 Hydromorphone HCl (Dilaudid) 0.5 mg Q4H PRN IV SEVERE PAIN LEVEL 7-10 Last administered on 10/22/18 12:01; Admin Dose 0.5 MG; Start 10/20/18 at 13:30 Duloxetine HCl (Cymbalta) 60 mg BID PO Last administered on 10/22/18 08:41; Ad min Dose 60 MG; Start 10/21/18 at 21:00 Quetiapine Fumarate (Seroquel) 25 mg HS PO Last administered on 10/21/18 21:17; Admin Dose 25 MG; Start 10/21/18 at 21:00 MICK MCHUGH Oct 22, 2018 15:47
[2018-10-22] MEDS ORDERED: POTASSIUM CHLORIDE 20 MEQ POWDER FOR ORAL SOLN PO ONE (16:00)
[2018-10-22 19:51] VITALS: BP 124/82; PULSE 71; RESP 20
[2018-10-22] MEDS: QUETIAPINE 25 MG TAB PO SCH ×2 (20:11→22:39)
[2018-10-22] MEDS: traZODone 100 MG TAB PO SCH (22:39)
[2018-10-23] VITALS (23 sets, daily range): BP systolic 67–169; BP diastolic 39–102; PULSE 90–128; RESP 13–32
[2018-10-23] MEDS: HYDROmorphONE 0.5 MG/0.5 ML SYG IV PRN ×3 (05:23→16:22)
[2018-10-23] MEDS ORDERED: THROMBIN (BOVINE) 5,000 UNIT VIAL TP ONE ×2 (07:32→10:05)
[2018-10-23] MEDS ORDERED: GELATIN SIZE 100 SPONGE ONE (07:32)
[2018-10-23] MEDS ORDERED: CEFAZOLIN 1 GM INJ ONE ×2 (07:32→10:49)
[2018-10-23] MEDS ORDERED: HEPARIN 1000 UNITS/ML 10 ML INJ ONE (07:33)
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
[2018-10-23] MEDS ORDERED: PHENYLephrine (100 MCG/ML) 10ML SYG ONE (08:04)
[2018-10-23] MEDS ORDERED: HYDROmorphONE 2 MG/ML SYG ONE (08:04)
--- NOTE | 2018-10-23 08:21 | HPN ---
Date/Time of Note Date/Time of Note DATE: 10/23/18 TIME: 08:18 Interval H&P Admission Note Pt. seen H&P reviewed: No system changes Neurosurgery Preop Note Extensive d/w patient about all available options including surgery vs no surgery. Overall risk/complications 3-5% as preprinted in my office consent thoroughly discussed. All questions answered and no guarantees given. Pt understands and would like to proceed with surgery. Pt understands that we will stage her procedure. Anterior L2-S1 today with posterior fixation with possible decompression to follow Friday. ICU post op NUNU LEBRON MD Oct 23, 2018 08:20
[2018-10-23] MEDS: AMLODIPINE 5 MG TAB PO SCH (09:00)
[2018-10-23] MEDS: HYDROCHLOROTHIAZIDE 12.5 MG CAP PO SCH (09:00)
[2018-10-23] MEDS: FAMOTIDINE 20 MG TAB PO SCH ×2 (09:00→19:46)
[2018-10-23] MEDS: DULOXETINE 30 MG CAP DR PO SCH ×2 (09:00→17:58)
[2018-10-23] MEDS: DOCUSATE SODIUM 100 MG CAP PO SCH ×3 (09:00→21:00)
[2018-10-23] MEDS: ARIPIPRAZOLE 10 MG TAB PO SCH (09:00)
[2018-10-23] MEDS: SODIUM CHLORIDE 5% BOTH EYES SCH ×2 (09:00→23:06)
[2018-10-23] MEDS: GABAPENTIN 400 MG CAP PO SCH ×2 (09:00→19:46)
[2018-10-23] MEDS: FLUTICASONE/VILANTEROL 200-25 INH DEVICE INH SCH (09:00)
[2018-10-23] MEDS ORDERED: FENTAnyl 50 MCG/ML VIAL ONE (09:00)
[2018-10-23] MEDS: PHENYTOIN 100 MG CAP PO SCH ×2 (09:00→19:45)
[2018-10-23] MEDS: LAMOTRIGINE 100 MG TAB PO SCH ×2 (09:00→19:45)
[2018-10-23] MEDS ORDERED: VANCOMYCIN 1 GM INJ ONE (09:17)
[2018-10-23] MEDS ORDERED: LABETALOL HCL 20MG INJ ONE (09:33)
[2018-10-23] MEDS ORDERED: HEMOSTATIC MATRIX SYG ZFS ONE (10:30)
[2018-10-23] MEDS ORDERED: ACETAMINOPHEN 325 MG TAB PO PRN (10:30)
[2018-10-23] MEDS ORDERED: NACL 0.9% 3 ML SYG IV SCH (10:30)
[2018-10-23] MEDS ORDERED: NALOXONE (0.4 MG/ML) INJ IV PRN (10:30)
[2018-10-23] MEDS ORDERED: AL HYDROX/MG HYDROX/SIMETH 30 ML CUP PO PRN (10:30)
[2018-10-23] MEDS ORDERED: DEXAMETHASONE 4 MG/ML 5 ML INJ ONE (10:49)
[2018-10-23] MEDS ORDERED: ONDANSETRON 4 MG INJ ONE (10:50)
[2018-10-23] MEDS ORDERED: SUGAMMADEX SODIUM 200 MG/2 ML VIAL IV ONE (11:31)
--- NOTE | 2018-10-23 11:43 | QN ---
Documentation Comment Patient is Off Floor- gone for Back surgery . best staff. will deepika. SERVANDO CUETO Oct 23, 2018 11:43
--- NOTE | 2018-10-23 11:46 | OPPN ---
Date/Time of Note Date/Time of Note DATE: 10/23/18 TIME: 11:44 Operative Report Preoperative Diagnosis Mechanical LBP and LE radicular pain Postoperative Diagnosis Same Operation/Procedure Performed ALIF L2-S1 Surgeon see signature line assistant professor sculpture MALEKMEHR Second assist: MARÍA RUIZ NP Anesthesia: general Estimated blood loss: 150 - 200 ml's Transfusion Required none Specimen SENT Grafts/Implants PEEK CAGES, TITANIUM SCREWS, FORMAGRAFT AND ALLOGRAFT BONE Complications none NUNU LEBRON MD Oct 23, 2018 11:46
--- NOTE | 2018-10-23 11:57 | PAC ---
Date/Time of Note Date/Time of Note DATE: 10/23/18 TIME: 11:56 Post-Anesthesia Notes Post-Anesthesia Note Last documented vital signs Vital Signs Date Temp Pulse Resp B/P (MAP) Pulse Ox O2 O2 Flow FiO2 Time Delivery Rate 10/23/18 98.3 85 20 122/78 95 1156 (93) 10/22/18 71 Room Air 19:51 Activity: WNL Respiratory function: WNL Cardiovascular function: WNL Mental status: Baseline Pain reasonably controlled: Yes Hydration appropriate: Yes Nausea/Vomiting absent: Yes ANDREWS WELLS Oct 23, 2018 11:57
[2018-10-23] MEDS ORDERED: ONDANSETRON 4 MG INJ IV PRN (12:00)
[2018-10-23] MEDS ORDERED: ALBUTEROL 0.083% (NEB) 2.5 MG/3 ML AMP HHN PRN (12:00)
[2018-10-23] MEDS ORDERED: MIDAZOLAM 1 MG/ML 2 ML INJ IV PRN (12:00)
[2018-10-23] MEDS ORDERED: METOCLOPRAMIDE 10 MG INJ IV PRN (12:00)
[2018-10-23] MEDS ORDERED: HYDROmorphONE 0.5 MG/0.5 ML SYG IV PRN ×3 (12:00)
[2018-10-23] MEDS ORDERED: hydrALAzine 20 MG INJ IV PRN (12:00)
[2018-10-23] MEDS ORDERED: LABETALOL HCL 20MG INJ IV PRN (12:00)
[2018-10-23] MEDS ORDERED: EPHEDrine SULFATE 50 MG/5 ML SYG IV PRN (12:00)
[2018-10-23] MEDS ORDERED: MEPERIDINE 25 MG INJ IV PRN (12:00)
[2018-10-23] MEDS ORDERED: DIPHENHYDRAMINE 50 MG INJ IV PRN (12:00)
[2018-10-23] MEDS: ONDANSETRON 4 MG INJ IV PRN (12:41)
[2018-10-23] MEDS: CEFAZOLIN 2 GM/50 ML (PMX) 50 ML IVPB SCH ×2 (13:19→23:06)
[2018-10-23] MEDS: HYDROCODONE/APAP (5/325) TAB PO PRN (13:31)
[2018-10-23] MEDS ORDERED: MAGNESIUM SULFATE 2 GM/50 ML 50 ML ONE (15:57)
[2018-10-23] MEDS: NS + KCL 20 MEQ 1,000 ML IV SCH ×2 (16:22→23:07)
[2018-10-23] MEDS: HYDROmorphONE 0.2 MG/ML PCA IV SCH (17:51)
[2018-10-23] MEDS: QUETIAPINE 25 MG TAB PO SCH (17:58)
[2018-10-23] MEDS: traZODone 100 MG TAB PO SCH (19:45)
[2018-10-23] MEDS: ZOLPIDEM 5 MG TAB PO PRN (19:45)
--- NOTE | 2018-10-23 20:00 | OPR ---
DATE OF OPERATION: PREOPERATIVE DIAGNOSIS: Degenerative disk disease, lumbosacral spine. POSTOPERATIVE DIAGNOSIS: Degenerative disk disease, lumbosacral spine. PROCEDURES: 1. Anterior retroperitoneal exposure interbody fusion of lumbosacral spine, L2 to L3. 2. Anterior retroperitoneal exposure interbody fusion of lumbosacral spine, L3 to L4. 3. Anterior retroperitoneal exposure interbody fusion of lumbosacral spine, L4 to L5. 4. Anterior retroperitoneal exposure interbody fusion of lumbosacral spine, L5 to S1. 5. Repair of left common iliac vein. For procedures 1 through 4: Surgeon: Ran Raphael MD; Cosurgeon: Yamilet Lebron MD For procedure 5: Surgeon: Ran Raphael MD; Marine Mammal Trainer: Yamilet Lebron MD INFORMED CONSENT: Risks and benefits have been explained to the patient included but not limited to bleeding, infection, damage to bowel, damage to ureter, wound infection, wound dehiscence, DVT, PE, l oss of limb, loss of life. The high-risk nature of the operation was fully explained and stressed to the patient. All questions were answered. DESCRIPTION OF PROCEDURE: The patient was placed in supine position, prepped and draped in usual avelino rile fashion. I made a 12 cm incision in left side of the umbilicus. Incision was taken down to sub cutaneous tissue which was then opened using electrocautery. Left anterior rectus sheath was opened in the direction of the wound. Posterior rectus sheath was incised superiorly about 5 cm. Retroperi toneal space was entered. Bookwalter retractor was placed retracting the bowel contents to the right , left rectus muscle to the left. I dissected the left common iliac artery and vein, external iliac artery and vein. The middle sacral vessels were ligated using titanium clips. The lowest lumbar ves sels on the left side were ligated using titanium clips. The left iliolumbar vessel was ligated usin g 2-0 silk suture ligature and titanium clips. There was a small tear in the left common iliac vein which was repaired using a 6-0 Prolene in a [id number] fashion. We proceeded with the diskectom y and placement of the new cage. Please refer to Dr. Lebron's dictation for the details of that opera tion. After all the x-rays were satisfactory read by Dr. Lebron, the needle count and sponge count wa s correct. The wound was irrigated again using antibiotic solution and closed in multilayers. Anter ior rectus sheath was closed using a #1 Vicryl suture in a running fashion with interrupted sutures i n the middle of the wound. The subcuticular closure was done with 3-0 Vicryl suture in running fashi on with Steri-Strips. The patient tolerated the procedure well. Dictated By: RAN RAPHAEL MD FM/NTS Conf#: [id number] DID#: [id number] CC: YAMILET LEBRON MD; YANICK CAMPBELL MD;*EndCC*
[2018-10-24] VITALS (58 sets, daily range): BP systolic 94–166; BP diastolic 55–129; PULSE 90–118; RESP 13–35
[2018-10-24] MEDS: KETOROLAC 30 MG INJ IV PRN ×2 (01:04→17:11)
[2018-10-24] MEDS: NS + KCL 20 MEQ 1,000 ML IV SCH ×2 (01:04→13:37)
[2018-10-24] MEDS: CEFAZOLIN 2 GM/50 ML (PMX) 50 ML IVPB SCH ×3 (06:20→23:48)
[2018-10-24] MEDS: SODIUM CHLORIDE 5% BOTH EYES SCH ×2 (09:00→20:41)
[2018-10-24] MEDS: FLUTICASONE/VILANTEROL 200-25 INH DEVICE INH SCH (09:00)
[2018-10-24] MEDS: DOCUSATE SODIUM 100 MG CAP PO SCH ×2 (09:14→20:41)
[2018-10-24] MEDS: PHENYTOIN 100 MG CAP PO SCH ×2 (09:14→20:41)
[2018-10-24] MEDS: GABAPENTIN 400 MG CAP PO SCH ×2 (09:14→20:40)
[2018-10-24] MEDS: LAMOTRIGINE 100 MG TAB PO SCH ×2 (09:14→20:40)
[2018-10-24] MEDS: AMLODIPINE 5 MG TAB PO SCH (09:15)
[2018-10-24] MEDS: HYDROCHLOROTHIAZIDE 12.5 MG CAP PO SCH (09:15)
[2018-10-24] MEDS: FAMOTIDINE 20 MG TAB PO SCH ×2 (09:15→20:41)
[2018-10-24] MEDS: DULOXETINE 30 MG CAP DR PO SCH ×2 (09:15→20:41)
[2018-10-24] MEDS: ARIPIPRAZOLE 10 MG TAB PO SCH (09:15)
[2018-10-24] MEDS: HYDROmorphONE 0.2 MG/ML PCA IV SCH (10:44)
[2018-10-24] MEDS ORDERED: LORAZEPAM 2 MG INJ ONE (17:24)
[2018-10-24] MEDS: LORAZEPAM 2 MG INJ IV PRN (17:41)
[2018-10-24] MEDS: traZODone 100 MG TAB PO SCH (20:40)
--- NOTE | 2018-10-24 20:42 | PN ---
Date/Time of Note Date/Time of Note DATE: 10/24/18 TIME: 20:39 Assessment/Plan VTE Prophylaxis Risk score (from Ns)>0 risk: 8 SCD applied (from Ns): Yes Pharmacological prophylaxis: NA/contraindicated Pharm contraindication: bleeding Lines/Catheters IV Catheter Type (from Nrsg): A Line Urinary Cath still in place: Yes Reason Cath still needed: skin wounds contaminated by urine Assessment/Plan Hospital Course PT/OT Assessment/Plan Continue supportive measures Result Diagram: 10/24/1814 10/24/1814 Results 24hrs Laboratory Tests Test 10/24/18 05:14 Hemoglobin 11.0 L Hematocrit 32.5 L Sodium Level 139 Potassium Level 4.3 Chloride Level 104 Carbon Dioxide Level 29 Anion Gap 6 Blood Urea Nitrogen 17 Creatinine 0.78 Est Glomerular Filtrat Rate mL/min > 60 Glucose Level 151 Calcium Level 9.1 Subjective 24 Hr Interval Summary Constitutional: no complaints Musculoskeletal: no complaints Exam/Review of Systems Exam Vitals Vital Signs Date Temp Pulse Resp B/P (MAP) Pulse Ox O2 O2 Flow FiO2 Time Delivery Rate 10/24/18 4.0 16:32 10/24/18 110 16:00 10/24/18 98.3 28 118/68 96 Nasal 16:00 (85) Cannula Intake and Output 10/23/18 10/23/18 10/24/18 1515:00 23:00 07:00 IntakeIntake Total 2760 ml 770 ml 1350 ml OutputOutput Total 675 ml 205 ml 165 ml BalanceBalance 2085 ml 565 ml 1185 ml Constitutional: alert, oriented ENMT: nl external ears & nose Neck: supple Respiratory: clear to auscultation Cardiovascular: regular rate and rhythm Gastrointestinal: soft, non-tender 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, nl mental status, nl speech, nl strength Results Results 24hrs Laboratory Tests Test 10/24/18 05:14 Hemoglobin 11.0 L Hematocrit 32.5 L Sodium Level 139 Potassium Level 4.3 Chloride Level 104 Carbon Dioxide Level 29 Anion Gap 6 Blood Urea Nitrogen 17 Creatinine 0.78 Est Glomerular Filtrat Rate mL/min > 60 Glucose Level 151 Calcium Level 9.1 Medications Medication Current Medications Ondansetron HCl (Zofran Inj) 4 mg Q6H PRN IV NAUSEA/VOMITING Last administered on 10/23/18at 12:41; Admin Dose 4 MG; Start 10/19/18 at 18:30 Acetaminophen/ Hydrocodone Bitart ([place] (5/325)) 2 tab Q6H PRN PO .SEVERE PAIN 7-10 Last administered on 10/23/18 13:31; Admin Dose 2 TAB; Start 10/19/18 at 18:30 Docusate Sodium (Colace) 100 mg Q12H PRN PO .CONSTIPATION; Start 10/19/18 at 18:30 Zolpidem Tartrate (Ambien) 5 mg QHS PRN PO .INSOMNIA Last administered on 10/23/18 19:45; Admin Dose 5 MG; Start 10/19/18 at 18:30 Famotidine (Pepcid) 20 mg Q12 PO Last administered on 10/24/18 09:15; Admin Dose 20 MG; Start 10/19/18 at 21:00 Fluticasone/ Vilanterol (Breo Ellipta 200-25 Mcg Inh) 1 inh DAILY INH Last administered on 10/22/18 08:41; Admin Dose 1 INH; Start 10/20/18 at 09:00 Gabapentin (Neurontin) 800 mg BID PO Last administered on 10/24/18 09:14; Admin Dose 800 MG; Start 10/19/18 at 21:00 Hydrochlorothiazide (Hydrochlorothiazide) 12.5 mg DAILY PO Last administered on 10/24/18 09:15; Admin Dose 12.5 MG; Start 10/20/18 at 09:00 Lamotrigine (Lamictal) 150 mg BID PO Last administered on 10/24/18 09:14; Admin Dose 150 MG; Start 10/19/18 at 21:00 Phenytoin (Dilantin) 200 mg BID PO Last administered on 10/24/18 09:14; Admin Dose 200 MG; Start 10/19/18 at 21:00 Trazodone HCl (Desyrel) 100 mg QHS PO Last administered on 10/23/18 19:45; Admin Dose 100 MG; Start 10/19/18 at 21:00 Patient Own Medication 1 ea BID BOTH EYES Last administered on 10/23/18 23:06; Admin Dose 1 EA; Start 10/19/18 at 21:00 Patient Own Medication 1 ea QHS BOTH EYES Last administered on 10/23/18 23:06; Admin Dose 1 EA; Start 10/19/18 at 21:00 Albuterol (Ventolin Hfa) 2 puff Q4H PRN INH SHORTNESS OF BREATH Last administered on 10/21/18at 22:53; Admin Dose 2 PUFF; Start 10/19/18 at 21:30 Amlodipine Besylate (Norvasc) 5 mg DAILY PO Last administered on 10/24/18 09:15; Admin Dose 5 MG; Start 10/20/18 at 12:00 Hydralazine HCl (Apresoline) 10 mg Q6H PRN IV SBP>170; Start 10/20/18 at 12:00 Hydromorphone HCl (Dilaudid) 0.5 mg Q4H PRN IV SEVERE PAIN LEVEL 7-10 Last administered on 10/23/18 16:22; Admin Dose 0.5 MG; Start 10/20/18 at 13:30 Duloxetine HCl (Cymbalta) 60 mg BID PO Last administered on 10/24/18 09:15; Admin Dose 60 MG; Start 10/21/18 at 21:00 Acetaminophen/ Hydrocodone Bitart ([place] (5/325)) 1 tab Q4H PRN PO .PAIN 1-5; Start 10/23/18 at 10:30 Al Hydrox/Mg Hydrox/Simethicone (Mag-Al Plus) 15 ml Q4H PRN PO .CONSTIPATION; Start 10/23/18 at 10:30 Docusate Sodium (Colace) 100 mg BID PO Last administered on 10/24/18at 09:14; Admin Dose 100 MG; Start 10/23/18 at 12:00 Acetaminophen (Tylenol Tab) 650 mg Q4H PRN PO TEMP GREATER THAN 101F OR REYES; Start 10/23/18 at 10:30 IV Flush (NS 3 ml) 3 ml PER PROTOCOL IV ; Start 10/23/18 at 10:30 Naloxone HCl (Narcan) 0.2 mg Q2M PRN IV RR 8 BREATHS/MIN OR LESS; Start 10/23 at 10:30 Potassium Chloride/Sodium Chloride 1,000 ml @ 100 mls/hr Q10H IV Last administered on 10/24/18at 13:37; Admin Dose 100 MLS/HR; Start 10/23/18 at 12:00 Cefazolin Sodium/ Dextrose 50 ml @ 100 mls/hr Q8 IVPB Last administered on 10/24/18at 13:37; Admin Dose 100 MLS/HR; Start 10/23/18 at 14:00 Ketorolac Tromethamine (Toradol) 30 mg Q6H PRN IV BREAKTHROUGH PAIN Last administered on 10/24/18at 17:11; Admin Dose 30 MG; Start 10/24/18 at 01:00; Stop 10/27/18 at 00:59 Aripiprazole (Abilify) 15 mg DAILY PO ; Start 10/25/18 at 09:00 Lorazepam (Ativan) 1 mg Q6H PRN IV AGITATION/ANXIETY Last administered on 10/24/18at 17:41; Admin Dose 1 MG; Start 10/24/18 at 17:30 NUNU LEBRON MD Oct 24, 2018 20:42
[2018-10-24] MEDS: HYDROmorphONE 0.5 MG/0.5 ML SYG IV PRN (20:48)
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
[2018-10-24] MEDS: ZOLPIDEM 5 MG TAB PO PRN (23:48)
[2018-10-25] VITALS (23 sets, daily range): BP systolic 104–165; BP diastolic 50–103; PULSE 85–118; RESP 16–32
[2018-10-25] MEDS: NS + KCL 20 MEQ 1,000 ML IV SCH ×2 (04:50→12:54)
[2018-10-25] MEDS: CEFAZOLIN 2 GM/50 ML (PMX) 50 ML IVPB SCH ×3 (05:14→21:49)
[2018-10-25] MEDS: HYDROmorphONE 0.5 MG/0.5 ML SYG IV PRN ×2 (08:39→21:34)
[2018-10-25] MEDS: SODIUM CHLORIDE 5% BOTH EYES SCH ×2 (09:02→21:29)
[2018-10-25] MEDS: LAMOTRIGINE 100 MG TAB PO SCH ×2 (09:04→21:20)
[2018-10-25] MEDS: PHENYTOIN 100 MG CAP PO SCH ×2 (09:04→21:24)
[2018-10-25] MEDS: DULOXETINE 30 MG CAP DR PO SCH ×2 (09:04→21:20)
[2018-10-25] MEDS: ARIPIPRAZOLE 10 MG TAB PO SCH (09:04)
[2018-10-25] MEDS: GABAPENTIN 400 MG CAP PO SCH ×2 (09:04→21:28)
[2018-10-25] MEDS: FAMOTIDINE 20 MG TAB PO SCH ×2 (09:05→21:28)
[2018-10-25] MEDS: AMLODIPINE 5 MG TAB PO SCH (09:05)
[2018-10-25] MEDS: DOCUSATE SODIUM 100 MG CAP PO SCH ×2 (09:05→21:24)
[2018-10-25] MEDS: HYDROCHLOROTHIAZIDE 12.5 MG CAP PO SCH (09:05)
[2018-10-25] MEDS: FLUTICASONE/VILANTEROL 200-25 INH DEVICE INH SCH (11:08)
[2018-10-25] MEDS: KETOROLAC 30 MG INJ IV PRN (12:56)
[2018-10-25] MEDS: LORAZEPAM 2 MG INJ IV PRN (13:30)
[2018-10-25] MEDS: ONDANSETRON 4 MG INJ IV PRN (17:38)
[2018-10-25] MEDS: traZODone 100 MG TAB PO SCH (21:24)
[2018-10-25] MEDS: ZOLPIDEM 5 MG TAB PO PRN (21:28)
[2018-10-25] MEDS: ALBUTEROL HFA 8 GM INHALER INH PRN (21:49)
[2018-10-26] VITALS (31 sets, daily range): BP systolic 91–164; BP diastolic 48–90; PULSE 68–111; RESP 12–33
[2018-10-26] MEDS: NS + KCL 20 MEQ 1,000 ML IV SCH ×2 (01:07→11:40)
[2018-10-26] MEDS: HYDROmorphONE 0.5 MG/0.5 ML SYG IV PRN ×3 (05:53→19:57)
[2018-10-26] MEDS: CEFAZOLIN 2 GM/50 ML (PMX) 50 ML IVPB SCH ×3 (06:47→21:47)
[2018-10-26] MEDS ORDERED: THROMBIN (BOVINE) 5,000 UNIT VIAL TP ONE (07:16)
[2018-10-26] MEDS ORDERED: GELATIN SIZE 100 SPONGE ONE (07:16)
[2018-10-26] MEDS ORDERED: POLYMYXIN/BACITRACIN 1L IRRIG ONE (07:17)
[2018-10-26] MEDS ORDERED: ROPIVACAINE 0.5 % 30 ML VIAL ONE (07:17)
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
[2018-10-26] MEDS ORDERED: MIDAZOLAM 1 MG/ML 2 ML INJ ONE (08:10)
[2018-10-26] MEDS ORDERED: LIDOCAINE 2% (SDV) 5 ML INJ ONE (08:10)
[2018-10-26] MEDS ORDERED: ROCURONIUM 50 MG INJ ONE ×2 (08:10→09:07)
[2018-10-26] MEDS ORDERED: PROPOFOL 20 ML ONE (08:10)
[2018-10-26] MEDS ORDERED: FENTAnyl 50 MCG/ML VIAL ONE (08:15)
--- NOTE | 2018-10-26 08:16 | HPN ---
Date/Time of Note Date/Time of Note DATE: 10/26/18 TIME: 08:14 Interval H&P Admission Note Pt. seen H&P reviewed: No system changes Neurosurgery Preop note Extensive d/w patient about all available options including surgery vs no surgery. Overall risk/complications 3-5% as preprinted in my office consent form. All questions answered and no guarantees given. NUNU LEBRON MD Oct 26, 2018 08:16
[2018-10-26] MEDS ORDERED: DEXAMETHASONE 4 MG/ML 5 ML INJ ONE (08:50)
[2018-10-26] MEDS ORDERED: ONDANSETRON 4 MG INJ ONE (08:50)
[2018-10-26] MEDS: FAMOTIDINE 20 MG TAB PO SCH ×2 (09:00→20:20)
[2018-10-26] MEDS: ARIPIPRAZOLE 10 MG TAB PO SCH (09:00)
[2018-10-26] MEDS: AMLODIPINE 5 MG TAB PO SCH (09:00)
[2018-10-26] MEDS: LAMOTRIGINE 100 MG TAB PO SCH ×2 (09:00→20:20)
[2018-10-26] MEDS: DOCUSATE SODIUM 100 MG CAP PO SCH ×2 (09:00→20:22)
[2018-10-26] MEDS: DULOXETINE 30 MG CAP DR PO SCH ×2 (09:00→20:19)
[2018-10-26] MEDS: FLUTICASONE/VILANTEROL 200-25 INH DEVICE INH SCH (09:00)
[2018-10-26] MEDS ORDERED: FAMOTIDINE 20 MG INJ ONE (09:03)
[2018-10-26] MEDS ORDERED: LABETALOL HCL 20MG INJ ONE (09:10)
[2018-10-26] MEDS ORDERED: EPHEDrine SULFATE 50 MG/5 ML SYG IV PRN (09:30)
[2018-10-26] MEDS ORDERED: hydrALAzine 20 MG INJ IV PRN (09:30)
[2018-10-26] MEDS ORDERED: HYDROmorphONE 0.5 MG/0.5 ML SYG IV PRN ×3 (09:30)
[2018-10-26] MEDS ORDERED: MEPERIDINE 25 MG INJ IV PRN (09:30)
[2018-10-26] MEDS ORDERED: LABETALOL HCL 20MG INJ IV PRN (09:30)
[2018-10-26] MEDS ORDERED: FENTAnyl 50 MCG/ML VIAL IV PRN (09:30)
[2018-10-26] MEDS ORDERED: ONDANSETRON 4 MG INJ IV PRN (09:30)
[2018-10-26] MEDS ORDERED: ALBUTEROL 0.083% (NEB) 2.5 MG/3 ML AMP HHN PRN (09:30)
[2018-10-26] MEDS ORDERED: DIPHENHYDRAMINE 50 MG INJ IV PRN (09:30)
--- NOTE | 2018-10-26 09:52 | PN ---
DATE: 10/25/2018 SUBJECTIVE: Follow up on ALIF L2-S1 and L2-S1 decompression and fusion to follow on Friday. The pat ient denies any chest pain or shortness of breath. Psychosis better after a dose of Abilify was incr eased. The patient did not have any vomiting. PHYSICAL EXAMINATION: GENERAL: The patient is awake, alert. VITAL SIGNS: Temperature 98.7, pulse 94, respirations 23, blood pressure 149/65, O2 saturation 100% on 3 liters nasal cannula. HEENT: No eye discharge or redness. Conjunctivae and lids are normal. Oropharynx is clear. NECK: No mass. CHEST: Fairly clear. CARDIOVASCULAR: S1, S2 normal. ABDOMEN: Soft. EXTREMITIES: No edema. NEUROLOGIC: The patient is awake, alert, fairly oriented with no gross focal deficit. IMPRESSION AND PLAN: 1. Mechanical low back pain status post ALIF and planned to go for L2-S1 decompression and fusion by Dr. Briggs on 10/26/18. 2. Bipolar disorder. Abilify was increased. Continue Cymbalta and Ativan on a p.r.n. basis. Dictated By: YANICK CAMPBELL MD AB/NTS Conf#: [id number] DID#: [id number] CC: YANICK CAMPBELL MD; NUNU BRIGGS MD;*EndCC*
[2018-10-26] MEDS ORDERED: HYDROmorphONE 2 MG/ML SYG ONE (10:46)
--- NOTE | 2018-10-26 11:06 | OPPN ---
Date/Time of Note Date/Time of Note DATE: 10/26/18 TIME: 11:04 Operative Report Preoperative Diagnosis Mechanical LBP with LE Radiculopathy Postoperative Diagnosis same Operation/Procedure Performed Left L2-S1 & Right L3-4 decompression with L2-S1 ISF Placement Surgeon see signature line pediatric medical assistant BASSEM Ordonez, ACNP-BC Anesthesia: general Estimated blood loss: 50 - 100 ml's Transfusion Required none Specimen Bones and ligaments L2-S1 Grafts/Implants none Complications none NUNU LEBRON MD Oct 26, 2018 11:06
--- NOTE | 2018-10-26 11:24 | PAC ---
Date/Time of Note Date/Time of Note DATE: 10/26/18 TIME: 11:23 Post-Anesthesia Notes Post-Anesthesia Note Last documented vital signs Vital Signs Date Temp Pulse Resp B/P (MAP) Pulse Ox O2 O2 Flow FiO2 Time Delivery Rate 10/26/18 98.5 11:18 10/26/18 103 08:00 10/26/18 22 153/82 97 Nasal 2.0 08:00 (105) Cannula 10/26/18 27 04:45 Activity: WNL Respiratory function: WNL Cardiovascular function: WNL Mental status: Baseline Pain reasonably controlled: Yes Hydration appropriate: Yes Nausea/Vomiting absent: Yes Comments BP: 112/68 HR: 84 RR: 15 T: 98.5 SaO2: 100% WANDA MOELLER MD Oct 26, 2018 11:24
[2018-10-26] MEDS: SODIUM CHLORIDE 5% BOTH EYES SCH ×2 (11:42→20:18)
[2018-10-26] MEDS: KETOROLAC 15 MG INJ IV SCH ×3 (12:48→23:54)
[2018-10-26] MEDS: HYDROCHLOROTHIAZIDE 12.5 MG CAP PO SCH (12:56)
[2018-10-26] MEDS: PHENYTOIN 100 MG CAP PO SCH ×2 (12:56→20:20)
[2018-10-26] MEDS: GABAPENTIN 400 MG CAP PO SCH ×2 (12:57→20:19)
--- NOTE | 2018-10-26 16:20 | PN ---
Date/Time of Note Date/Time of Note DATE: 10/26/18 TIME: 16:15 Assessment/Plan VTE Prophylaxis Risk score (from Ns)>0 risk: 8 SCD applied (from Ns): Yes Pharmacological prophylaxis: NA/contraindicated Pharm contraindication: surgical contra Lines/Catheters IV Catheter Type (from Nrsg): A Line Urinary Cath still in place: Yes Reason Cath still needed: urinary retention Assessment/Plan Hospital Course Patient status post posterior fusion of lumbar spine today, patient is awake alert hemodynamically stable, complains of pain. Continue ICU care. Assessment/Plan -Intractable low back pain secondary to degenerative joint disease of the lumbar spine. S/p ALIF L2-S1 by Dr. Briggs and anterior retroperitoneal exposure interbody fusion of lumbosacral spine by Dr. Raphael on 10/23/18. S/p Left L2- S1 & Right L3-4 decompression with L2-S1 ISF Placement on 10/26/18. Continue Dilaudid and Toradol as needed for pain and Zofran as needed for nausea. -Hypertension, continue hydralazine as needed. -Asthma, continue Brio Ellipta -Bipolar disorder, continue Cymbalta and Abilify Critical care time spent is 30 minutes. Further recommendations based on clinical course. Plan of care discussed with Dr. Xavier. Result Diagram: 10/26/18 0532 10/26/18 0532 Results 24hrs Laboratory Tests Test 10/26/18 05:32 White Blood Count 16.5 H Red Blood Count 3.15 L Hemoglobin 9.7 L Hematocrit 28.1 L Mean Corpuscular Volume 89.2 Mean Corpuscular Hemoglobin 30.8 Mean Corpuscular Hemoglobin Concent 34.5 Red Cell Distribution Width 12.9 Platelet Count 209 # Mean Platelet Volume 9.0 Immature Granulocytes % 1.100 H Neutrophils % 81.3 H Lymphocytes % 9.6 L Monocytes % 7.0 Eosinophils % 0.8 Basophils % 0.2 Nucleated Red Blood Cells % 0.1 H Immature Granulocytes # 0.180 H Neutrophils # 13.4 H Lymphocytes # 1.6 Monocytes # 1.2 H Eosinophils # 0.1 Basophils # 0.0 Nucleated Red Blood Cells # 0.0 Prothrombin Time 14.8 Prothrombin Time Ratio 1.2 INR International Normalized Ratio 1.15 Activated Partial Thromboplast Time 31.6 Sodium Level 137 Potassium Level 3.8 Chloride Level 106 Carbon Dioxide Level 25 Anion Gap 6 Blood Urea Nitrogen 5 L Creatinine 0.39 L Est Glomerular Filtrat Rate mL/min > 60 Glucose Level 105 Calcium Level 8.6 Exam/Review of Systems Exam Vitals Vital Signs Date Temp Pulse Resp B/P (MAP) Pulse Ox O2 O2 Flow FiO2 Time Delivery Rate 10/26/18 70 16 126/57 99 Nasal 14:30 (80) Cannula 10/26/18 2.0 14:00 10/26/18 98.4 11:30 10/26/18 27 04:45 Intake and Output 10/25/18 10/25/18 10/26/18 1515:00 23:00 07:00 IntakeIntake Total 1900 ml 1220 ml 800 ml OutputOutput Total 375 ml 425 ml 580 ml BalanceBalance 1525 ml 795 ml 220 ml Constitutional: alert, oriented Head: normocephalic Neck: supple Cardiovascular: regular rate and rhythm Gastrointestinal: soft, non-tender, other (Status post surgery with dry clean intact dressing) Musculoskeletal: other (Status post lower back surgery with intact surgical incision and RAMIREZ drain) Extremities: normal pulses Neurological: nl mental status Results Results 24hrs Laboratory Tests Test 10/26/18 05:32 White Blood Count 16.5 H Red Blood Count 3.15 L Hemoglobin 9.7 L Hematocrit 28.1 L Mean Corpuscular Volume 89.2 Mean Corpuscular Hemoglobin 30.8 Mean Corpuscular Hemoglobin Concent 34.5 Red Cell Distribution Width 12.9 Platelet Count 209 # Mean Platelet Volume 9.0 Immature Granulocytes % 1.100 H Neutrophils % 81.3 H Lymphocytes % 9.6 L Monocytes % 7.0 Eosinophils % 0.8 Basophils % 0.2 Nucleated Red Blood Cells % 0.1 H Immature Granulocytes # 0.180 H Neutrophils # 13.4 H Lymphocytes # 1.6 Monocytes # 1.2 H Eosinophils # 0.1 Basophils # 0.0 Nucleated Red Blood Cells # 0.0 Prothrombin Time 14.8 Prothrombin Time Ratio 1.2 INR International Normalized Ratio 1.15 Activated Partial Thromboplast Time 31.6 Sodium Level 137 Potassium Level 3.8 Chloride Level 106 Carbon Dioxide Level 25 Anion Gap 6 Blood Urea Nitrogen 5 L Creatinine 0.39 L Est Glomerular Filtrat Rate mL/min > 60 Glucose Level 105 Calcium Level 8.6 Medications Medication Current Medications Ondansetron HCl (Zofran Inj) 4 mg Q6H PRN IV NAUSEA/VOMITING Last administered on 10/25/18 17:38; Admin Dose 4 MG; Start 10/19/18 at 18:30 Acetaminophen/ Hydrocodone Bitart ([place] (5/325)) 2 tab Q6H PRN PO .SEVERE PAIN 7-10 Last administered on 10/23/18 13:31; Admin Dose 2 TAB; Start 10/19/18 at 18:30 Docusate Sodium (Colace) 100 mg Q12H PRN PO .CONSTIPATION; Start 10/19/18 at 18:30 Zolpidem Tartrate (Ambien) 5 mg QHS PRN PO .INSOMNIA Last administered on 10/25/18 21:28; Admin Dose 5 MG; Start 10/19/18 at 18:30 Famotidine (Pepcid) 20 mg Q12 PO Last administered on 10/25/18 21:28; Admin Dose 20 MG; Start 10/19/18 at 21:00 Fluticasone/ Vilanterol (Breo Ellipta 200-25 Mcg Inh) 1 inh DAILY INH Last administered on 10/25/18 11:08; Admin Dose 1 INH; Start 10/20/18 at 09:00 Gabapentin (Neurontin) 800 mg BID PO Last administered on 10/26/18 12:57; A dmin Dose 800 MG; Start 10/19/18 at 21:00 Hydrochlorothiazide (Hydrochlorothiazide) 12.5 mg DAILY PO Last administered on 10/26/18 12:56; Admin Dose 12.5 MG; Start 10/20/18 at 09:00 Lamotrigine (Lamictal) 150 mg BID PO Last administered on 10/25/18 21:20; Admin Dose 150 MG; Start 10/19/18 at 21:00 Phenytoin (Dilantin) 200 mg BID PO Last administered on 10/26/18 12:56; Admin Dose 200 MG; Start 10/19/18 at 21:00 Trazodone HCl (Desyrel) 100 mg QHS PO Last administered on 10/25/18 21:24; Admin Dose 100 MG; Start 10/19/18 at 21:00 Patient Own Medication 1 ea BID BOTH EYES Last administered on 10/26/18 11:42; Admin Dose 1 EA; Start 10/19/18 at 21:00 Patient Own Medication 1 ea QHS BOTH EYES Last administered on 10/25/18 21:29; Admin Dose 1 EA; Start 10/19/18 at 21:00 Albuterol (Ventolin Hfa) 2 puff Q4H PRN INH SHORTNESS OF BREATH Last administered on 10/25/18 21:49; Admin Dose 2 PUFF; Start 10/19/18 at 21:30 Amlodipine Besylate (Norvasc) 5 mg DAILY PO Last administered on 10/25/18at 09 :05; Admin Dose 5 MG; Start 10/20/18 at 12:00 Hydralazine HCl (Apresoline) 10 mg Q6H PRN IV SBP>170; Start 10/20/18 at 12:00 Hydromorphone HCl (Dilaudid) 0.5 mg Q4H PRN IV SEVERE PAIN LEVEL 7-10 Last administered on 10/26/18at 15:55; Admin Dose 0.5 MG; Start 10/20/18 at 13:30 Duloxetine HCl (Cymbalta) 60 mg BID PO Last administered on 10/25/18 21:20; Admin Dose 60 MG; Start 10/21/18 at 21:00 Acetaminophen/ Hydrocodone Bitart ([place] (5/325)) 1 tab Q4H PRN PO .PAIN 1-5; Start 10/23/18 at 10:30 Al Hydrox/Mg Hydrox/Simethicone (Mag-Al Plus) 15 ml Q4H PRN PO .CONSTIPATION; Start 10/23/18 at 10:30 Docusate Sodium (Colace) 100 mg BID PO Last administered on 10/25/18at 21:24; Admin Dose 100 MG; Start 10/23/18 at 12:00 Acetaminophen (Tylenol Tab) 650 mg Q4H PRN PO TEMP GREATER THAN 101F OR REYES; Start 10/23/18 at 10:30 IV Flush (NS 3 ml) 3 ml PER PROTOCOL IV ; Start 10/23/18 at 10:30 Naloxone HCl (Narcan) 0.2 mg Q2M PRN IV RR 8 BREATHS/MIN OR LESS; Start 10/23/18 at 10:30 Potassium Chloride/Sodium Chloride 1,000 ml @ 60 mls/hr [id number] IV Last administered on 10/26/18 11:40; Admin Dose 60 MLS/HR; Start 10/23/18 at 12:00 Cefazolin Sodium/ Dextrose 50 ml @ 100 mls/hr Q8 IVPB Last administered on 10/26/18 06:47; Admin Dose 100 MLS/HR; Start 10/23/18 at 14:00 Ketorolac Tromethamine (Toradol) 30 mg Q6H PRN IV BREAKTHROUGH PAIN Last administered on 10/25/18 12:56; Admin Dose 30 MG; Start 10/24/18 at 01:00; Stop 10/27/18 at 00:59 Aripiprazole (Abilify) 15 mg DAILY PO Last administered on 10/25/18 09:04; Admin Dose 15 MG; Start 10/25/18 at 09:00 Lorazepam (Ativan) 1 mg Q6H PRN IV AGITATION/ANXIETY Last administered on 10/25/18 13:30; Admin Dose 1 MG; Start 10/24/18 at 17:30 Ketorolac Tromethamine (Toradol) 15 mg Q6H IV Last administered on 10/26/18 12:48; Admin Dose 15 MG; Start 10/26/18 at 11:30; Stop 10/29/18 at 11:29 MICK MCHUGH Oct 26, 2018 16:20
[2018-10-26] MEDS: traZODone 100 MG TAB PO SCH (20:20)
[2018-10-27] VITALS (42 sets, daily range): BP systolic 92–149; BP diastolic 48–106; PULSE 76–95; RESP 13–26
[2018-10-27] MEDS: HYDROmorphONE 0.5 MG/0.5 ML SYG IV PRN ×5 (01:32→22:24)
[2018-10-27] MEDS: HYDROCODONE/APAP (5/325) TAB PO PRN ×3 (04:22→17:06)
[2018-10-27] MEDS: KETOROLAC 15 MG INJ IV SCH ×4 (05:45→23:09)
[2018-10-27] MEDS: ONDANSETRON 4 MG INJ IV PRN ×2 (06:17→17:34)
[2018-10-27] MEDS: NS + KCL 20 MEQ 1,000 ML IV SCH (06:17)
[2018-10-27] MEDS: CEFAZOLIN 2 GM/50 ML (PMX) 50 ML IVPB SCH ×3 (06:18→23:34)
[2018-10-27] MEDS: DULOXETINE 30 MG CAP DR PO SCH ×2 (09:09→21:00)
[2018-10-27] MEDS: SODIUM CHLORIDE 5% BOTH EYES SCH ×2 (09:09→21:00)
[2018-10-27] MEDS: ARIPIPRAZOLE 10 MG TAB PO SCH (09:09)
[2018-10-27] MEDS: GABAPENTIN 400 MG CAP PO SCH ×2 (09:10→21:00)
[2018-10-27] MEDS: LAMOTRIGINE 100 MG TAB PO SCH ×2 (09:10→21:00)
[2018-10-27] MEDS: DOCUSATE SODIUM 100 MG CAP PO SCH ×2 (09:10→20:15)
[2018-10-27] MEDS: FAMOTIDINE 20 MG TAB PO SCH ×2 (09:10→21:00)
[2018-10-27] MEDS: HYDROCHLOROTHIAZIDE 12.5 MG CAP PO SCH (09:11)
[2018-10-27] MEDS: AMLODIPINE 5 MG TAB PO SCH (09:11)
[2018-10-27] MEDS: PHENYTOIN 100 MG CAP PO SCH ×2 (09:19→21:00)
[2018-10-27] MEDS: FLUTICASONE/VILANTEROL 200-25 INH DEVICE INH SCH (13:47)
--- NOTE | 2018-10-27 14:27 | PN ---
Date/Time of Note Date/Time of Note DATE: 10/27/18 TIME: 14:25 Assessment/Plan VTE Prophylaxis Risk score (from Ns)>0 risk: 11 SCD applied (from Ns): Yes SCD contraindicated: low risk/ambulating Pharmacological prophylaxis: NA/contraindicated Pharm contraindication: low risk/ambulating Lines/Catheters [facility] Type (from [facility] A Line Central line still needed: No Urinary Cath still in place: No Assessment/Plan Assessment/Plan Neurosurgery Progress note Patient seen and examined s/p Left L2-S1 & Right L3-4 decompression with L2-S1 ISF placement. POD #1 ALIF L2-S1 . Plan dc martinez ini 1-2 days dc jewell in am pt/ot with LSO brace okay to downgrade dc IVF encourage IS x 10 Result Diagram: 10/27/189 10/27/18428 Results 24hrs Laboratory Tests Test 10/27/18 04:29 White Blood Count 12.2 #H Red Blood Count 2.23 #L Hemoglobin 7.0 #L Hematocrit 20.3 #L Mean Corpuscular Volume 91.0 Mean Corpuscular Hemoglobin 31.4 Mean Corpuscular Hemoglobin Concent 34.5 Red Cell Distribution Width 13.1 Platelet Count 211 Mean Platelet Volume 9.2 Immature Granulocytes % 1.100 H Neutrophils % 67.9 Lymphocytes % 19.7 Monocytes % 8.8 Eosinophils % 2.1 Basophils % 0.4 Nucleated Red Blood Cells % 0.0 Immature Granulocytes # 0.130 H Neutrophils # 8.3 H Lymphocytes # 2.4 Monocytes # 1.1 H Eosinophils # 0.3 Basophils # 0.1 Nucleated Red Blood Cells # 0.0 Sodium Level 133 L Potassium Level 3.7 Chloride Level 103 Carbon Dioxide Level 26 Anion Gap 4 L Blood Urea Nitrogen 8 Creatinine 0.42 L Est Glomerular Filtrat Rate mL/min > 60 Glucose Level 99 Calcium Level 8.1 L Subjective 24 Hr Interval Summary Free Text/Dictation Neurosurgery follow up S: s/p posterior decompression and ISF placement. Exam/Review of Systems Exam Vitals Vital Signs Date Temp Pulse Resp B/P (MAP) Pulse Ox O2 O2 Flow FiO2 Time Delivery Rate 10/27/18 84 12:00 10/27/18 16 123/56 99 08:15 (78) 10/27/18 98.2 Nasal 2.0 08:00 Cannula 10/26/18 27 04:45 Intake and Output 10/26/18 10/26/18 10/27/18 1515:00 23:00 07:00 IntakeIntake Total 2390 ml 1230 ml 930 ml OutputOutput Total 400 ml 500 ml 320 ml BalanceBalance 1990 ml 730 ml 610 ml Neurological: other (MS: AAOX4 CN; PERRL M: FC x 4 , no new focal def. Surgical site: CDI ) Results Results 24hrs Laboratory Tests Test 10/27/18 04:29 White Blood Count 12.2 #H Red Blood Count 2.23 #L Hemoglobin 7.0 #L Hematocrit 20.3 #L Mean Corpuscular Volume 91.0 Mean Corpuscular Hemoglobin 31.4 Mean Corpuscular Hemoglobin Concent 34.5 Red Cell Distribution Width 13.1 Platelet Count 211 Mean Platelet Volume 9.2 Immature Granulocytes % 1.100 H Neutrophils % 67.9 Lymphocytes % 19.7 Monocytes % 8.8 Eosinophils % 2.1 Basophils % 0.4 Nucleated Red Blood Cells % 0.0 Immature Granulocytes # 0.130 H Neutrophils # 8.3 H Lymphocytes # 2.4 Monocytes # 1.1 H Eosinophils # 0.3 Basophils # 0.1 Nucleated Red Blood Cells # 0.0 Sodium Level 133 L Potassium Level 3.7 Chloride Level 103 Carbon Dioxide Level 26 Anion Gap 4 L Blood Urea Nitrogen 8 Creatinine 0.42 L Est Glomerular Filtrat Rate mL/min > 60 Glucose Level 99 Calcium Level 8.1 L Medications Medication Current Medications Ondansetron HCl (Zofran Inj) 4 mg Q6H PRN IV NAUSEA/VOMITING Last administered on 10/27/18at 06:17; Admin Dose 4 MG; Start 10/19/18 at 18:30 Acetaminophen/ Hydrocodone Bitart ([place] (5/325)) 2 tab Q6H PRN PO .SEVERE PAIN 7-10 Last administered on 10/27/18at 04:22; Admin Dose 2 TAB; Start 10/19/18 at 18:30 Docusate Sodium (Colace) 100 mg Q12H PRN PO .CONSTIPATION; Start 10/19/18 at 18:30 Zolpidem Tartrate (Ambien) 5 mg QHS PRN PO .INSOMNIA Last administered on 10/25/18at 21:28; Admin Dose 5 MG; Start 10/19/18 at 18:30 Famotidine (Pepcid) 20 mg Q12 PO Last administered on 10/27/18 09:10; Admin Dose 20 MG; Start 10/19/18 at 21:00 Fluticasone/ Vilanterol (Breo Ellipta 200-25 Mcg Inh) 1 inh DAILY INH Last administered on 10/27/18 13:47; Admin Dose 1 INH; Start 10/20/18 at 09:00 Gabapentin (Neurontin) 800 mg BID PO Last administered on 10/27/18 09:10; Admin Dose 800 MG; Start 10/19/18 at 21:00 Hydrochlorothiazide (Hydrochlorothiazide) 12.5 mg DAILY PO Last administered on 10/27/18 09:11; Admin Dose 12.5 MG; Start 10/20/18 at 09:00 Lamotrigine (Lamictal) 150 mg BID PO Last administered on 10/27/18 09:10; Admin Dose 150 MG; Start 10/19/18 at 21:00 Phenytoin (Dilantin) 200 mg BID PO Last administered on 10/27/18 09:19; Admin Dose 200 MG; Start 10/19/18 at 21:00 Trazodone HCl (Desyrel) 100 mg QHS PO Last administered on 10/26/18 20:20; Admin Dose 100 MG; Start 10/19/18 at 21:00 Patient Own Medication 1 ea BID BOTH EYES Last administered on 10/27/18 09:09; Admin Dose 1 EA; Start 10/19/18 at 21:00 Patient Own Medication 1 ea QHS BOTH EYES Last administered on 10/26/18 20:18; Admin Dose 1 EA; Start 10/19/18 at 21:00 Albuterol (Ventolin Hfa) 2 puff Q4H PRN INH SHORTNESS OF BREATH Last adminis tered on 10/25/18 21:49; Admin Dose 2 PUFF; Start 10/19/18 at 21:30 Amlodipine Besylate (Norvasc) 5 mg DAILY PO Last administered on 10/27/18 09:11; Admin Dose 5 MG; Start 10/20/18 at 12:00 Hydralazine HCl (Apresoline) 10 mg Q6H PRN IV SBP>170; Start 10/20/18 at 12:00 Hydromorphone HCl (Dilaudid) 0.5 mg Q4H PRN IV SEVERE PAIN LEVEL 7-10 Last administered on 10/27/18 14:04; Admin Dose 0.5 MG; Start 10/20/18 at 13:30 Duloxetine HCl (Cymbalta) 60 mg BID PO Last administered on 10/27/18 09:09; A dmin Dose 60 MG; Start 10/21/18 at 21:00 Acetaminophen/ Hydrocodone Bitart ([place] (5/325)) 1 tab Q4H PRN PO .PAIN 1-5 Last administered on 10/27/18 11:15; Admin Dose 1 TAB; Start 10/23/18 at 10:30 Al Hydrox/Mg Hydrox/Simethicone (Mag-Al Plus) 15 ml Q4H PRN PO .CONSTIPATION; Start 10/23/18 at 10:30 Docusate Sodium (Colace) 100 mg BID PO Last administered on 10/27/18 09:10; Admin Dose 100 MG; Start 10/23/18 at 12:00 Acetaminophen (Tylenol Tab) 650 mg Q4H PRN PO TEMP GREATER THAN 101F OR REYES; Start 10/23/18 at 10:30 IV Flush (NS 3 ml) 3 ml PER PROTOCOL IV ; Start 10/23/18 at 10:30 Naloxone HCl (Narcan) 0.2 mg Q2M PRN IV RR 8 BREATHS/MIN OR LESS; Start 10/23/18 at 10:30 Potassium Chloride/Sodium Chloride 1,000 ml @ 60 mls/hr [id number] IV Last administered on 10/27/18 06:17; Admin Dose 60 MLS/HR; Start 10/23/18 at 12:00 Cefazolin Sodium/ Dextrose 50 ml @ 100 mls/hr Q8 IVPB Last administered on 10/27/18 14:04; Admin Dose 100 MLS/HR; Start 10/23/18 at 14:00 Aripiprazole (Abilify) 15 mg DAILY PO Last administered on 10/27/18 09:09; Admin Dose 15 MG; Start 10/25/18 at 09:00 Lorazepam (Ativan) 1 mg Q6H PRN IV AGITATION/ANXIETY Last administered on 10/25/18 13:30; Admin Dose 1 MG; Start 10/24/18 at 17:30 Ketorolac Tromethamine (Toradol) 15 mg Q6H IV Last administered on 10/27/18at 11:15; Admin Dose 15 MG; Start 10/26/18 at 11:30; Stop 10/29/18 at 11:29 MARÍA RUIZ NP Oct 27, 2018 14:27
[2018-10-27] MEDS ORDERED: SOD CHLORIDE 0.9% 250 ML IV* ONE (15:26)
--- NOTE | 2018-10-27 15:44 | PN ---
Date/Time of Note Date/Time of Note DATE: 10/27/18 TIME: 15:33 Assessment/Plan VTE Prophylaxis [place] [facility] [place] risk: 11 SCD applied (from [facility] [place] Yes Pharmacological prophylaxis: NA/contraindicated Pharm contraindication: surgical contra Lines/Catheters IV Catheter Type (from [facility]): A Line Urinary Cath still in place: No Assessment/Plan Hospital Course Patient still with significant postoperative pain which is controlled with [place], Toradol and Dilaudid as needed. Moderate drainage from RAMIREZ, hemoglobin is 7.0. We will transfuse 1 unit of packed red blood cells. CBC tomorrow. Stable to transfer to [address] Assessment/Plan -Intractable low back pain secondary to degenerative joint disease of the lumbar spine. S/p ALIF L2-S1 by Dr. Briggs and anterior retroperitoneal exposure interbody fusion of lumbosacral spine by Dr. Raphael on 10/23/18. S/p Left L2- S1 & Right L3-4 decompression with L2-S1 ISF Placement on 10/26/18. Continue Dilaudid and Toradol as needed for pain and Zofran as needed for nausea. Continue PT. -Anemia of acute blood loss, transfuse 1 unit of packed red blood cells, monitor H&H. -Hypertension, continue hydralazine as needed. -Asthma, continue Brio Ellipta -Bipolar disorder, continue Cymbalta and Abilify Critical care time spent is 30 minutes. Further recommendations based on clinical course. Plan of care discussed with Dr. Xavier. Result Diagram: 10/27/18 0429 10/27/18 0429 Results 24hrs Laboratory Tests Test 10/27/18 04:29 White Blood Count 12.2 #H Red Blood Count 2.23 #L Hemoglobin 7.0 #L Hematocrit 20.3 #L Mean Corpuscular Volume 91.0 Mean Corpuscular Hemoglobin 31.4 Mean Corpuscular Hemoglobin Concent 34.5 Red Cell Distribution Width 13.1 Platelet Count 211 Mean Platelet Volume 9.2 Immature Granulocytes % 1.100 H Neutrophils % 67.9 Lymphocytes % 19.7 Monocytes % 8.8 Eosinophils % 2.1 Basophils % 0.4 Nucleated Red Blood Cells % 0.0 Immature Granulocytes # 0.130 H Neutrophils # 8.3 H Lymphocytes # 2.4 Monocytes # 1.1 H Eosinophils # 0.3 Basophils # 0.1 Nucleated Red Blood Cells # 0.0 Sodium Level 133 L Potassium Level 3.7 Chloride Level 103 Carbon Dioxide Level 26 Anion Gap 4 L Blood Urea Nitrogen 8 Creatinine 0.42 L Est Glomerular Filtrat Rate mL/min > 60 Glucose Level 99 Calcium Level 8.1 L Exam/Review of Systems Exam Vitals Vital Signs Date Temp Pulse Resp B/P (MAP) Pulse Ox O2 O2 Flow FiO2 Time Delivery Rate 10/27/18 83 20 114/62 96 Nasal 2.0 15:00 (79) Cannula 10/27/18 98.2 12:00 10/26/18 27 04:45 Intake and Output 10/26/18 10/26/18 10/27/18 1515:00 23:00 07:00 IntakeIntake Total 2390 ml 1230 ml 930 ml OutputOutput Total 400 ml 500 ml 320 ml BalanceBalance 1990 ml 730 ml 610 ml Exam Constitutional: alert, oriented Head: normocephalic Neck: supple Cardiovascular: regular rate and rhythm Gastrointestinal: soft, non-tender, other (Status post surgery with dry clean intact dressing) Musculoskeletal: other (Status post lower back surgery with intact surgical incision and RAMIREZ drain) Extremities: normal pulses Neurological: nl mental status Results Results 24hrs Laboratory Tests Test 10/27/18 04:29 White Blood Count 12.2 #H Red Blood Count 2.23 #L Hemoglobin 7.0 #L Hematocrit 20.3 #L Mean Corpuscular Volume 91.0 Mean Corpuscular Hemoglobin 31.4 Mean Corpuscular Hemoglobin Concent 34.5 Red Cell Distribution Width 13.1 Platelet Count 211 Mean Platelet Volume 9.2 Immature Granulocytes % 1.100 H Neutrophils % 67.9 Lymphocytes % 19.7 Monocytes % 8.8 Eosinophils % 2.1 Basophils % 0.4 Nucleated Red Blood Cells % 0.0 Immature Granulocytes # 0.130 H Neutrophils # 8.3 H Lymphocytes # 2.4 Monocytes # 1.1 H Eosinophils # 0.3 Basophils # 0.1 Nucleated Red Blood Cells # 0.0 Sodium Level 133 L Potassium Level 3.7 Chloride Level 103 Carbon Dioxide Level 26 Anion Gap 4 L Blood Urea Nitrogen 8 Creatinine 0.42 L Est Glomerular Filtrat Rate mL/min > 60 Glucose Level 99 Calcium Level 8.1 L Medications Medication Current Medications Ondansetron HCl (Zofran Inj) 4 mg Q6H PRN IV NAUSEA/VOMITING Last administered on 10/27/18 06:17; Admin Dose 4 MG; Start 10/19/18 at 18:30 Acetaminophen/ Hydrocodone Bitart ([place] (5/325)) 2 tab Q6H PRN PO .SEVERE PAIN 7-10 Last administered on 10/27/18 04:22; Admin Dose 2 TAB; Start 10/19/18 at 18:30 Docusate Sodium (Colace) 100 mg Q12H PRN PO .CONSTIPATION; Start 10/19/18 at 18:30 Zolpidem Tartrate (Ambien) 5 mg QHS PRN PO .INSOMNIA Last administered on 10/25/18 21:28; Admin Dose 5 MG; Start 10/19/18 at 18:30 Famotidine (Pepcid) 20 mg Q12 PO Last administered on 10/27/18 09:10; Admin Dose 20 MG; Start 10/19/18 at 21:00 Fluticasone/ Vilanterol (Breo Ellipta 200-25 Mcg Inh) 1 inh DAILY INH Last administered on 10/27/18 13:47; Admin Dose 1 INH; Start 10/20/18 at 09:00 Gabapentin (Neurontin) 800 mg BID PO Last administered on 10/27/18 09:10; Admin Dose 800 MG; Start 10/19/18 at 21:00 Hydrochlorothiazide (Hydrochlorothiazide) 12.5 mg DAILY PO Last administered on 10/27/18 09:11; Admin Dose 12.5 MG; Start 10/20/18 at 09:00 Lamotrigine (Lamictal) 150 mg BID PO Last administered on 10/27/18 09:10; Admin Dose 150 MG; Start 10/19/18 at 21:00 Phenytoin (Dilantin) 200 mg BID PO Last administered on 10/27/18 09:19; Admin Dose 200 MG; Start 10/19/18 at 21:00 Trazodone HCl (Desyrel) 100 mg QHS PO Last administered on 10/26/18 20:20; Admin Dose 100 MG; Start 10/19/18 at 21:00 Patient Own Medication 1 ea BID BOTH EYES Last administered on 10/27/18 09:09; Admin Dose 1 EA; Start 10/19/18 at 21:00 Patient Own Medication 1 ea QHS BOTH EYES Last administered on 10/26/18 20:18; Admin Dose 1 EA; Start 10/19/18 at 21:00 Albuterol (Ventolin Hfa) 2 puff Q4H PRN INH SHORTNESS OF BREATH Last administer ed on 10/25/18at 21:49; Admin Dose 2 PUFF; Start 10/19/18 at 21:30 Amlodipine Besylate (Norvasc) 5 mg DAILY PO Last administered on 10/27/18 09:11; Admin Dose 5 MG; Start 10/20/18 at 12:00 Hydralazine HCl (Apresoline) 10 mg Q6H PRN IV SBP>170; Start 10/20/18 at 12:00 Hydromorphone HCl (Dilaudid) 0.5 mg Q4H PRN IV SEVERE PAIN LEVEL 7-10 Last administered on 10/27/18 14:04; Admin Dose 0.5 MG; Start 10/20/18 at 13:30 Duloxetine HCl (Cymbalta) 60 mg BID PO Last administered on 10/27/18 09:09; Admin Dose 60 MG; Start 10/21/18 at 21:00 Acetaminophen/ Hydrocodone Bitart ([place] (5/325)) 1 tab Q4H PRN PO .PAIN 1-5 Last administered on 10/27/18 11:15; Admin Dose 1 TAB; Start 10/23/18 at 10:30 Al Hydrox/Mg Hydrox/Simethicone (Mag-Al Plus) 15 ml Q4H PRN PO .CONSTIPATION; Start 10/23/18 at 10:30 Docusate Sodium (Colace) 100 mg BID PO Last administered on 10/27/18 09:10; Admin Dose 100 MG; Start 10/23/18 at 12:00 Acetaminophen (Tylenol Tab) 650 mg Q4H PRN PO TEMP GREATER THAN 101F OR REYES; St art 10/23/18 at 10:30 IV Flush (NS 3 ml) 3 ml PER PROTOCOL IV ; Start 10/23/18 at 10:30 Naloxone HCl (Narcan) 0.2 mg Q2M PRN IV RR 8 BREATHS/MIN OR LESS; Start 10/23/18 at 10:30 Cefazolin Sodium/ Dextrose 50 ml @ 100 mls/hr Q8 IVPB Last administered on 10/27/18at 14:04; Admin Dose 100 MLS/HR; Start 10/23/18 at 14:00 Aripiprazole (Abilify) 15 mg DAILY PO Last administered on 10/27/18at 09:09; Admin Dose 15 MG; Start 10/25/18 at 09:00 Lorazepam (Ativan) 1 mg Q6H PRN IV AGITATION/ANXIETY Last administered on 10/25/18at 13:30; Admin Dose 1 MG; Start 10/24/18 at 17:30 Ketorolac Tromethamine (Toradol) 15 mg Q6H IV Last administered on 10/27/18at 11:15; Admin Dose 15 MG; Start 10/26/18 at 11:30; Stop 10/29/18 at 11:29 Calcium Carbonate (Tums) 500 mg PC MEALS PO ; Start 10/27/18 at 18:35; Status UNV Sodium Chloride 250 ml @ 0 mls/hr Q0M ONCE IV* ; Start 10/27/18 at 15:26; Stop 10/27/18 at 15:27; Status UNV MICK MCHUGH Oct 27, 2018 15:43
[2018-10-27] MEDS: CALCIUM CARBONATE 500 MG CHEW TAB PO SCH (18:55)
[2018-10-27] MEDS: traZODone 100 MG TAB PO SCH (21:00)
[2018-10-28 02:13] VITALS: BP 139/64; PULSE 93; RESP 18
[2018-10-28] MEDS: ONDANSETRON 4 MG INJ IV PRN (03:03)
[2018-10-28] MEDS: HYDROmorphONE 0.5 MG/0.5 ML SYG IV PRN ×5 (03:04→20:58)
[2018-10-28] MEDS: KETOROLAC 15 MG INJ IV SCH ×4 (05:17→23:45)
[2018-10-28] MEDS: CEFAZOLIN 2 GM/50 ML (PMX) 50 ML IVPB SCH ×3 (06:55→23:45)
[2018-10-28 07:53] VITALS: BP 138/63; PULSE 80; RESP 18
[2018-10-28] MEDS: DOCUSATE SODIUM 100 MG CAP PO SCH ×2 (09:00→21:04)
[2018-10-28] MEDS: SODIUM CHLORIDE 5% BOTH EYES SCH ×2 (09:00→21:00)
[2018-10-28] MEDS: LAMOTRIGINE 100 MG TAB PO SCH ×2 (09:03→21:05)
[2018-10-28] MEDS: GABAPENTIN 400 MG CAP PO SCH ×2 (09:03→21:05)
[2018-10-28] MEDS: PHENYTOIN 100 MG CAP PO SCH ×2 (09:03→21:04)
[2018-10-28] MEDS: FAMOTIDINE 20 MG TAB PO SCH ×2 (09:03→21:05)
[2018-10-28] MEDS: ARIPIPRAZOLE 10 MG TAB PO SCH (09:04)
[2018-10-28] MEDS: DULOXETINE 30 MG CAP DR PO SCH ×2 (09:04→21:04)
[2018-10-28] MEDS: CALCIUM CARBONATE 500 MG CHEW TAB PO SCH ×3 (09:04→17:40)
[2018-10-28] MEDS: HYDROCHLOROTHIAZIDE 12.5 MG CAP PO SCH (09:05)
[2018-10-28] MEDS: AMLODIPINE 5 MG TAB PO SCH (09:05)
[2018-10-28] MEDS: FLUTICASONE/VILANTEROL 200-25 INH DEVICE INH SCH (09:14)
[2018-10-28] MEDS: HYDROCODONE/APAP (5/325) TAB PO PRN ×2 (10:45→19:05)
[2018-10-28] MEDS ORDERED: MAGNESIUM SULFATE 2 GM/50 ML 50 ML IVPB ONE (12:00)
--- NOTE | 2018-10-28 12:13 | PN ---
Date/Time of Note Date/Time of Note DATE: 10/28/18 TIME: 11:58 Assessment/Plan VTE Prophylaxis Risk score (from Ns)>0 risk: 4 SCD applied (from Ns): Yes Pharmacological prophylaxis: NA/contraindicated Pharm contraindication: surgical contra Lines/Catheters IV Catheter Type (from Nrs[facility]): Peripheral IV Central line still needed: Yes Urinary Cath still in place: Yes Reason Cath still needed: urinary retention Assessment/Plan Hospital Course Hemoglobin is 8.3 after blood transfusion yesterday, patient is awake alert, was able to work with physical therapy, however still complains of significant postoperative pain. To new current pain management, continue physical therapy with LSO brace when out of bed. Magnesium replacement ordered. Assessment/Plan -Intractable low back pain secondary to degenerative joint disease of the lumbar spine. S/p ALIF L2-S1 by Dr. Briggs and anterior retroperitoneal exposure interbody fusion of lumbosacral spine by Dr. Raphael on 10/23/18. S/p Left L2- S1 & Right L3-4 decompression with L2-S1 ISF Placement on 10/26/18. Continue Dilaudid and Toradol as needed for pain and Zofran as needed for nausea. Continue PT. -Anemia of acute blood loss, status post blood transfusion, monitor H&H. -Hypertension, patient is currently normotensive, continue hydralazine as needed. -Asthma, continue Brio Ellipta -Bipolar disorder, continue Cymbalta and Abilify Further recommendations based on clinical course. Plan of care discussed with Dr. Xavier. Result Diagram: 10/28/18 0427 10/28/18 0427 Results 24hrs Laboratory Tests Test 10/28/18 04:27 10/28/18 07:27 White Blood Count 10.4 Red Blood Count 2.72 #L Hemoglobin 8.3 L Hematocrit 24.3 L Mean Corpuscular Volume 89.3 Mean Corpuscular Hemoglobin 30.5 Mean Corpuscular Hemoglobin Concent 34.2 Red Cell Distribution Width 13.1 Platelet Count 211 Mean Platelet Volume 9.1 Immature Granulocytes % 1.700 H Neutrophils % 72.8 Lymphocytes % 13.2 L Monocytes % 10.1 Eosinophils % 1.9 Basophils % 0.3 Nucleated Red Blood Cells % 0.2 H Immature Granulocytes # 0.180 H Neutrophils # 7.6 H Lymphocytes # 1.4 Monocytes # 1.1 H Eosinophils # 0.2 Basophils # 0.0 Nucleated Red Blood Cells # 0.0 Sodium Level 134 L Potassium Level 3.5 Chloride Level 100 Carbon Dioxide Level 29 Anion Gap 5 Blood Urea Nitrogen 4 L Creatinine 0.35 L Est Glomerular Filtrat Rate mL/min > 60 Glucose Level 92 Calcium Level 8.4 Magnesium Level 1.6 L Lab Scanned Report BLOOD TRANSFUSION Exam/Review of Systems Exam Vitals Vital Signs Date Temp Pulse Resp B/P (MAP) Pulse Ox O2 O2 Flow FiO2 Time Delivery Rate 10/28/18 98.2 80 18 138/63 93 Room Air 07:53 (88) 10/28/18 2.0 06:57 10/26/18 04:45 Intake and Output 10/27/18 10/27/18 10/28/18 1515:00 23:00 07:00 IntakeIntake Total 980 ml 360 ml 400 ml OutputOutput Total 735 ml 155 ml 1050 ml BalanceBalance 245 ml 205 ml -650 ml Exam Constitutional: alert, oriented Head: normocephalic Neck: supple Cardiovascular: regular rate and rhythm Gastrointestinal: soft, non-tender, other (Status post surgery with dry clean intact dressing) Musculoskeletal: other (Status post lower back surgery with intact surgical incision and RAMIREZ drain) Extremities: normal pulses Neurological: nl mental status Results Results 24hrs Laboratory Tests Test 10/28/18 04:27 10/28/18 07:27 White Blood Count 10.4 Red Blood Count 2.72 #L Hemoglobin 8.3 L Hematocrit 24.3 L Mean Corpuscular Volume 89.3 Mean Corpuscular Hemoglobin 30.5 Mean Corpuscular Hemoglobin Concent 34.2 Red Cell Distribution Width 13.1 Platelet Count 211 Mean Platelet Volume 9.1 Immature Granulocytes % 1.700 H Neutrophils % 72.8 Lymphocytes % 13.2 L Monocytes % 10.1 Eosinophils % 1.9 Basophils % 0.3 Nucleated Red Blood Cells % 0.2 H Immature Granulocytes # 0.180 H Neutrophils # 7.6 H Lymphocytes # 1.4 Monocytes # 1.1 H Eosinophils # 0.2 Basophils # 0.0 Nucleated Red Blood Cells # 0.0 Sodium Level 134 L Potassium Level 3.5 Chloride Level 100 Carbon Dioxide Level 29 Anion Gap 5 Blood Urea Nitrogen 4 L Creatinine 0.35 L Est Glomerular Filtrat Rate mL/min > 60 Glucose Level 92 Calcium Level 8.4 Magnesium Level 1.6 L Lab Scanned Report BLOOD TRANSFUSION Medications Medication Current Medications Ondansetron HCl (Zofran Inj) 4 mg Q6H PRN IV NAUSEA/VOMITING Last administered on 10/28/18 03:03; Admin Dose 4 MG; Start 10/19/18 at 18:30 Acetaminophen/ Hydrocodone Bitart ([place] (5/325)) 2 tab Q6H PRN PO .SEVERE PAIN 7-10 Last administered on 10/28/18 10:45; Admin Dose 2 TAB; Start 10/19/18 at 18:30 Docusate Sodium (Colace) 100 mg Q12H PRN PO .CONSTIPATION; Start 10/19/18 at 18:30 Zolpidem Tartrate (Ambien) 5 mg QHS PRN PO .INSOMNIA Last administered on 10/25/18 21:28; Admin Dose 5 MG; Start 10/19/18 at 18:30 Famotidine (Pepcid) 20 mg Q12 PO Last administered on 10/28/18 09:03; Admin Dose 20 MG; Start 10/19/18 at 21:00 Fluticasone/ Vilanterol (Breo Ellipta 200-25 Mcg Inh) 1 inh DAILY INH Last administered on 10/28/18 09:14; Admin Dose 1 INH; Start 10/20/18 at 09:00 Gabapentin (Neurontin) 800 mg BID PO Last administered on 10/28/18 09:03; Admin Dose 800 MG; Start 10/19/18 at 21:00 Hydrochlorothiazide (Hydrochlorothiazide) 12.5 mg DAILY PO Last administered on 10/28/18 09:05; Admin Dose 12.5 MG; Start 10/20/18 at 09:00 Lamotrigine (Lamictal) 150 mg BID PO Last administered on 10/28/18 09:03; Admin Dose 150 MG; Start 10/19/18 at 21:00 Phenytoin (Dilantin) 200 mg BID PO Last administered on 10/28/18 09:03; Admin Dose 200 MG; Start 10/19/18 at 21:00 Trazodone HCl (Desyrel) 100 mg QHS PO Last administered on 10/26/18 20:20; Admin Dose 100 MG; Start 10/19/18 at 21:00 Patient Own Medication 1 ea BID BOTH EYES Last administered on 10/27/18 09:09; Admin Dose 1 EA; Start 10/19/18 at 21:00 Patient Own Medication 1 ea QHS BOTH EYES Last administered on 10/26/18 20:18; Admin Dose 1 EA; Start 10/19/18 at 21:00 Albuterol (Ventolin Hfa) 2 puff Q4H PRN INH SHORTNESS OF BREATH Last administered on 10/25/18 21:49; Admin Dose 2 PUFF; Start 10/19/18 at 21:30 Amlodipine Besylate (Norvasc) 5 mg DAILY PO Last administered on 10/28/18 09:05; Admin Dose 5 MG; Start 10/20/18 at 12:00 Hydralazine HCl (Apresoline) 10 mg Q6H PRN IV SBP>170; Start 10/20/18 at 12:00 Hydromorphone HCl (Dilaudid) 0.5 mg Q4H PRN IV SEVERE PAIN LEVEL 7-10 Last administered on 10/28/18at 07:42; Admin Dose 0.5 MG; Start 10/20/18 at 13:30 Duloxetine HCl (Cymbalta) 60 mg BID PO Last administered on 10/28/18 09:04; Admin Dose 60 MG; Start 10/21/18 at 21:00 Acetaminophen/ Hydrocodone Bitart ([place] (5/325)) 1 tab Q4H PRN PO .PAIN 1-5 Last administered on 10/27/18 17:06; Admin Dose 1 TAB; Start 10/23/18 at 10:30 Al Hydrox/Mg Hydrox/Simethicone (Mag-Al Plus) 15 ml Q4H PRN PO .CONSTIPATION; Start 10/23/18 at 10:30 Docusate Sodium (Colace) 100 mg BID PO Last administered on 10/27/18 09:10; Admin Dose 100 MG; Start 10/23/18 at 12:00 Acetaminophen (Tylenol Tab) 650 mg Q4H PRN PO TEMP GREATER THAN 101F OR REYES; Start 10/23/18 at 10:30 IV Flush (NS 3 ml) 3 ml PER PROTOCOL IV ; Start 10/23/18 at 10:30 Naloxone HCl (Narcan) 0.2 mg Q2M PRN IV RR 8 BREATHS/MIN OR LESS; Start 10/23/18 at 10:30 Cefazolin Sodium/ Dextrose 50 ml @ 100 mls/hr Q8 IVPB Last administered on 10/28/18at 06:55; Admin Dose 100 MLS/HR; Start 10/23/18 at 14:00 Aripiprazole (Abilify) 15 mg DAILY PO Last administered on 10/28/18at 09:04; Admin Dose 15 MG; Start 10/25/18 at 09:00 Lorazepam (Ativan) 1 mg Q6H PRN IV AGITATION/ANXIETY Last administered on 10/25/18at 13:30; Admin Dose 1 MG; Start 10/24/18 at 17:30 Ketorolac Tromethamine (Toradol) 15 mg Q6H IV Last administered on 10/28/18at 05:17; Admin Dose 15 MG; Start 10/26/18 at 11:30; Stop 10/29/18 at 11:29 Calcium Carbonate (Tums) 500 mg PC MEALS PO Last administered on 10/28/18at 09:04; Admin Dose 500 MG; Start 10/27/18 at 18:35 MICK MCHUGH Oct 28, 2018 12:08
[2018-10-28 14:00] VITALS: BP 132/66; PULSE 82; RESP 18
[2018-10-28] MEDS: traZODone 100 MG TAB PO SCH (21:04)
[2018-10-29] MEDS: HYDROCODONE/APAP (5/325) TAB PO PRN ×5 (01:34→23:35)
[2018-10-29 02:00] VITALS: BP 137/62; PULSE 88; RESP 20
[2018-10-29] MEDS: HYDROmorphONE 0.5 MG/0.5 ML SYG IV PRN ×4 (04:30→21:13)
[2018-10-29] MEDS: KETOROLAC 15 MG INJ IV SCH (05:54)
[2018-10-29 08:17] VITALS: BP 162/80; PULSE 84; RESP 18
[2018-10-29] MEDS: CEFAZOLIN 2 GM/50 ML (PMX) 50 ML IVPB SCH ×3 (08:25→22:45)
[2018-10-29] MEDS: SODIUM CHLORIDE 5% BOTH EYES SCH ×2 (09:00→21:00)
[2018-10-29] MEDS: FLUTICASONE/VILANTEROL 200-25 INH DEVICE INH SCH (09:23)
[2018-10-29] MEDS: PHENYTOIN 100 MG CAP PO SCH ×2 (09:24→21:13)
[2018-10-29] MEDS: ARIPIPRAZOLE 10 MG TAB PO SCH (09:25)
[2018-10-29] MEDS: FAMOTIDINE 20 MG TAB PO SCH ×2 (09:25→21:13)
[2018-10-29] MEDS: GABAPENTIN 400 MG CAP PO SCH ×2 (09:25→21:13)
[2018-10-29] MEDS: LAMOTRIGINE 100 MG TAB PO SCH ×2 (09:26→21:14)
[2018-10-29] MEDS: DULOXETINE 30 MG CAP DR PO SCH ×2 (09:27→21:13)
[2018-10-29] MEDS: AMLODIPINE 5 MG TAB PO SCH (09:27)
[2018-10-29] MEDS: DOCUSATE SODIUM 100 MG CAP PO SCH ×2 (09:27→21:00)
[2018-10-29] MEDS: CALCIUM CARBONATE 500 MG CHEW TAB PO SCH ×3 (09:27→18:15)
[2018-10-29] MEDS: HYDROCHLOROTHIAZIDE 12.5 MG CAP PO SCH (09:28)
--- NOTE | 2018-10-29 11:54 | PN ---
Date/Time of Note Date/Time of Note DATE: 10/29/18 TIME: 11:50 Assessment/Plan VTE Prophylaxis Risk score (from Nsg)>0 risk: 6 SCD applied (from Nsg): Yes SCD contraindicated: low risk/ambulating Pharmacological prophylaxis: NA/contraindicated Pharm contraindication: low risk/ambulating Lines/Catheters IV Catheter Type (from Nrsg): Saline Lock Central line still needed: No Urinary Cath still in place: No Assessment/Plan Assessment/Plan Impression s/p ALIF L2-S1 with Posterior decompression and ISF placement doing well overall increase strength to bilat LE Surgical sites: CDI ambulating with pt/ot today. Per patient and (at bedside) approximately 100ft today and able to perform 4 steps Plan dc martinez drain and jewell cath pain management IS x 10 Rehab eval, okay to proceed from NS point of view rehab vs snf vs home w/ hh okay from NS point of view, follow up with Dr Briggs in 2 weeks okay to shower by Friday. Result Diagram: 10/29/18 0433 10/29/18 0433 Results 24hrs Laboratory Tests Test 10/29/18 04:33 White Blood Count 10.9 H Red Blood Count 2.65 L Hemoglobin 8.2 L Hematocrit 23.8 L Mean Corpuscular Volume 89.8 Mean Corpuscular Hemoglobin 30.9 Mean Corpuscular Hemoglobin Concent 34.5 Red Cell Distribution Width 13.1 Platelet Count 234 Mean Platelet Volume 9.3 Immature Granulocytes % 2.600 H Neutrophils % 73.3 Lymphocytes % 13.9 L Monocytes % 8.0 Eosinophils % 1.9 Basophils % 0.3 Nucleated Red Blood Cells % 0.2 H Immature Granulocytes # 0.280 H Neutrophils # 8.0 H Lymphocytes # 1.5 Monocytes # 0.9 Eosinophils # 0.2 Basophils # 0.0 Nucleated Red Blood Cells # 0.0 Sodium Level 133 L Potassium Level 3.3 L Chloride Level 99 Carbon Dioxide Level 29 Anion Gap 5 Blood Urea Nitrogen 3 L Creatinine 0.37 L Est Glomerular Filtrat Rate mL/min > 60 Glucose Level 91 Calcium Level 8.9 Magnesium Level 1.6 L Subjective 24 Hr Interval Summary Free Text/Dictation Neurosurgery Progress Note Patient seen and examined Overall lower ext radic/weakness improving ambulating > 100 ft and 4 steps with PT today per at bedside. Surgical sites: CDI Exam/Review of Systems Exam Vitals Vital Signs Date Temp Pulse Resp B/P (MAP) Pulse Ox O2 O2 Flow FiO2 Time Delivery Rate 10/29/18 98.5 84 18 162/80 99 Room Air 08:17 (107) 10/29/18 2.0 03:34 10/26/18 27 04:45 Intake and Output 10/28/18 10/28/18 10/29/18 1515:00 23:00 07:00 IntakeIntake Total 50 ml 750 ml 350 ml OutputOutput Total 10 ml 40 ml 1130 ml BalanceBalance 40 ml 710 ml -780 ml Neurological: other (MS: AAOX4 CN; PERRL M: FC x4 , no focal def, increasing strength overall. ) Results Results 24hrs Laboratory Tests Test 10/29/18 04:33 White Blood Count 10.9 H Red Blood Count 2.65 L Hemoglobin 8.2 L Hematocrit 23.8 L Mean Corpuscular Volume 89.8 Mean Corpuscular Hemoglobin 30.9 Mean Corpuscular Hemoglobin Concent 34.5 Red Cell Distribution Width 13.1 Platelet Count 234 Mean Platelet Volume 9.3 Immature Granulocytes % 2.600 H Neutrophils % 73.3 Lymphocytes % 13.9 L Monocytes % 8.0 Eosinophils % 1.9 Basophils % 0.3 Nucleated Red Blood Cells % 0.2 H Immature Granulocytes # 0.280 H Neutrophils # 8.0 H Lymphocytes # 1.5 Monocytes # 0.9 Eosinophils # 0.2 Basophils # 0.0 Nucleated Red Blood Cells # 0.0 Sodium Level 133 L Potassium Level 3.3 L Chloride Level 99 Carbon Dioxide Level 29 Anion Gap 5 Blood Urea Nitrogen 3 L Creatinine 0.37 L Est Glomerular Filtrat Rate mL/min > 60 Glucose Level 91 Calcium Level 8.9 Magnesium Level 1.6 L Medications Medication Current Medications Ondansetron HCl (Zofran Inj) 4 mg Q6H PRN IV NAUSEA/VOMITING Last administered on 10/28/18at 03:03; Admin Dose 4 MG; Start 10/19/18 at 18:30 Acetaminophen/ Hydrocodone Bitart ([place] (5/325)) 2 tab Q6H PRN PO .SEVERE PAIN 7-10 Last administered on 10/29/18at 08:26; Admin Dose 2 TAB; Start 10/19/18 at 18:30 Docusate Sodium (Colace) 100 mg Q12H PRN PO .CONSTIPATION; Start 10/19/18 at 18:30 Zolpidem Tartrate (Ambien) 5 mg QHS PRN PO .INSOMNIA Last administered on 10/25/18 21:28; Admin Dose 5 MG; Start 10/19/18 at 18:30 Famotidine (Pepcid) 20 mg Q12 PO Last administered on 10/29/18 09:25; Admin Dose 20 MG; Start 10/19/18 at 21:00 Fluticasone/ Vilanterol (Breo Ellipta 200-25 Mcg Inh) 1 inh DAILY INH Last administered on 10/29/18 09:23; Admin Dose 1 INH; Start 10/20/18 at 09:00 Gabapentin (Neurontin) 800 mg BID PO Last administered on 10/29/18 09:25; Admin Dose 800 MG; Start 10/19/18 at 21:00 Hydrochlorothiazide (Hydrochlorothiazide) 12.5 mg DAILY PO Last administered on 10/29/18 09:28; Admin Dose 12.5 MG; Start 10/20/18 at 09:00 Lamotrigine (Lamictal) 150 mg BID PO Last administered on 10/29/18 09:26; Admin Dose 150 MG; Start 10/19/18 at 21:00 Phenytoin (Dilantin) 200 mg BID PO Last administered on 10/29/18 09:24; Admin Dose 200 MG; Start 10/19/18 at 21:00 Trazodone HCl (Desyrel) 100 mg QHS PO Last administered on 10/28/18 21:04; Admin Dose 100 MG; Start 10/19/18 at 21:00 Patient Own Medication 1 ea BID BOTH EYES Last administered on 10/27/18 09:09; Admin Dose 1 EA; Start 10/19/18 at 21:00 Patient Own Medication 1 ea QHS BOTH EYES Last administered on 10/26/18 20:18; Admin Dose 1 EA; Start 10/19/18 at 21:00 Albuterol (Ventolin Hfa) 2 puff Q4H PRN INH SHORTNESS OF BREATH Last administered on 10/25/18 21:49; Admin Dose 2 PUFF; Start 10/19/18 at 21:30 Amlodipine Besylate (Norvasc) 5 mg DAILY PO Last administered on 10/29/18 09:27; Admin Dose 5 MG; Start 10/20/18 at 12:00 Hydralazine HCl (Apresoline) 10 mg Q6H PRN IV SBP>170; Start 10/20/18 at 12:00 Hydromorphone HCl (Dilaudid) 0.5 mg Q4H PRN IV SEVERE PAIN LEVEL 7-10 Last administered on 10/29/18 04:30; Admin Dose 0.5 MG; Start 10/20/18 at 13:30 Duloxetine HCl (Cymbalta) 60 mg BID PO Last administered on 10/29/18 09:27; Admin Dose 60 MG; Start 10/21/18 at 21:00 Acetaminophen/ Hydrocodone Bitart ([place] (5/325)) 1 tab Q4H PRN PO .PAIN 1-5 Last administered on 10/27/18 17:06; Admin Dose 1 TAB; Start 10/23/18 at 10:30 Al Hydrox/Mg Hydrox/Simethicone (Mag-Al Plus) 15 ml Q4H PRN PO .CONSTIPATION; Start 10/23/18 at 10:30 Docusate Sodium (Colace) 100 mg BID PO Last administered on 10/29/18 09:27; Admin Dose 100 MG; Start 10/23/18 at 12:00 Acetaminophen (Tylenol Tab) 650 mg Q4H PRN PO TEMP GREATER THAN 101F OR REYES; Start 10/23/18 at 10:30 IV Flush (NS 3 ml) 3 ml PER PROTOCOL IV ; Start 10/23/18 at 10:30 Naloxone HCl (Narcan) 0.2 mg Q2M PRN IV RR 8 BREATHS/MIN OR LESS; Start 10/23/18 at 10:30 Aripiprazole (Abilify) 15 mg DAILY PO Last administered on 10/29/18 09:25; Admin Dose 15 MG; Start 10/25/18 at 09:00 Lorazepam (Ativan) 1 mg Q6H PRN IV AGITATION/ANXIETY Last administered on 10/25/18 13:30; Admin Dose 1 MG; Start 10/24/18 at 17:30 Calcium Carbonate (Tums) 500 mg PC MEALS PO Last administered on 10/29/18 09:27; Admin Dose 500 MG; Start 10/27/18 at 18:35 Cefazolin Sodium/ Dextrose 50 ml @ 100 mls/hr Q8 IVPB Last administered on 10/29/18at 08:25; Admin Dose 100 MLS/HR; Start 10/28/18 at 17:00 MARÍA RUIZ NP Oct 29, 2018 11:54
[2018-10-29 16:21] VITALS: BP 156/71; PULSE 81; RESP 18
--- NOTE | 2018-10-29 16:25 | PN ---
Date/Time of Note Date/Time of Note DATE: 10/29/18 TIME: 16:22 Assessment/Plan VTE Prophylaxis Risk score (from Nsg)>0 risk: 6 SCD applied (from Ns): Yes Pharmacological prophylaxis: NA/contraindicated Pharm contraindication: surgical contra Lines/Catheters IV Catheter Type (from Nrsg): Saline Lock Urinary Cath still in place: No Assessment/Plan Hospital Course RAMIREZ and Cee was discontinued. Pain is adequately controlled. Patient is complains of bloating and gas pain will start simethicone. Continue physical therapy. ARU eval. Assessment/Plan -Intractable low back pain secondary to degenerative joint disease of the lumbar spine. S/p ALIF L2-S1 by Dr. Briggs and anterior retroperitoneal exposure interbody fusion of lumbosacral spine by Dr. Raphael on 10/23/18. S/p Left L2- S1 & Right L3-4 decompression with L2-S1 ISF Placement on 10/26/18. Continue Dilaudid and Toradol as needed for pain and Zofran as needed for nausea. Con tinue PT. -Anemia of acute blood loss, status post blood transfusion, monitor H&H. -Hypertension, patient is currently normotensive, continue hydralazine as needed. -Asthma, continue Brio Ellipta -Bipolar disorder, continue Cymbalta and Abilify Further recommendations based on clinical course. Plan of care discussed with Dr. Xavier. Result Diagram: 10/29/18 0433 10/29/18 0433 Results 24hrs Laboratory Tests Test 10/29/18 04:33 White Blood Count 10.9 H Red Blood Count 2.65 L Hemoglobin 8.2 L Hematocrit 23.8 L Mean Corpuscular Volume 89.8 Mean Corpuscular Hemoglobin 30.9 Mean Corpuscular Hemoglobin Concent 34.5 Red Cell Distribution Width 13.1 Platelet Count 234 Mean Platelet Volume 9.3 Immature Granulocytes % 2.600 H Neutrophils % 73.3 Lymphocytes % 13.9 L Monocytes % 8.0 Eosinophils % 1.9 Basophils % 0.3 Nucleated Red Blood Cells % 0.2 H Immature Granulocytes # 0.280 H Neutrophils # 8.0 H Lymphocytes # 1.5 Monocytes # 0.9 Eosinophils # 0.2 Basophils # 0.0 Nucleated Red Blood Cells # 0.0 Sodium Level 133 L Potassium Level 3.3 L Chloride Level 99 Carbon Dioxide Level 29 Anion Gap 5 Blood Urea Nitrogen 3 L Creatinine 0.37 L Est Glomerular Filtrat Rate mL/min > 60 Glucose Level 91 Calcium Level 8.9 Magnesium Level 1.6 L Exam/Review of Systems Exam Vitals Vital Signs Date Temp Pulse Resp B/P (MAP) Pulse Ox O2 O2 Flow FiO2 Time Delivery Rate 10/29/18 98.5 84 18 162/80 99 Room Air 08:17 (107) 10/29/18 2.0 03:34 10/26/18 27 04:45 Intake and Output 10/28/18 10/28/18 10/29/18 1515:00 23:00 07:00 IntakeIntake Total 50 ml 750 ml 350 ml OutputOutput Total 10 ml 40 ml 1130 ml BalanceBalance 40 ml 710 ml -780 ml Exam Constitutional: alert, oriented Cardiovascular: nl pulse Gastrointestinal: soft, non-tender, other (Status post surgery with dry clean intact dressing) Musculoskeletal: other (Status post lower back surgery with intact surgical incision) Extremities: normal pulses Neurological: nl mental status Results Results 24hrs Laboratory Tests Test 10/29/18 04:33 White Blood Count 10.9 H Red Blood Count 2.65 L Hemoglobin 8.2 L Hematocrit 23.8 L Mean Corpuscular Volume 89.8 Mean Corpuscular Hemoglobin 30.9 Mean Corpuscular Hemoglobin Concent 34.5 Red Cell Distribution Width 13.1 Platelet Count 234 Mean Platelet Volume 9.3 Immature Granulocytes % 2.600 H Neutrophils % 73.3 Lymphocytes % 13.9 L Monocytes % 8.0 Eosinophils % 1.9 Basophils % 0.3 Nucleated Red Blood Cells % 0.2 H Immature Granulocytes # 0.280 H Neutrophils # 8.0 H Lymphocytes # 1.5 Monocytes # 0.9 Eosinophils # 0.2 Basophils # 0.0 Nucleated Red Blood Cells # 0.0 Sodium Level 133 L Potassium Level 3.3 L Chloride Level 99 Carbon Dioxide Level 29 Anion Gap 5 Blood Urea Nitrogen 3 L Creatinine 0.37 L Est Glomerular Filtrat Rate mL/min > 60 Glucose Level 91 Calcium Level 8.9 Magnesium Level 1.6 L Medications Medication Current Medications Ondansetron HCl (Zofran Inj) 4 mg Q6H PRN IV NAUSEA/VOMITING Last administered on 10/28/18at 03:03; Admin Dose 4 MG; Start 10/19/18 at 18:30 Docusate Sodium (Colace) 100 mg Q12H PRN PO .CONSTIPATION; Start 10/19/18 at 18:30 Zolpidem Tartrate (Ambien) 5 mg QHS PRN PO .INSOMNIA Last administered on 10/25/18 21:28; Admin Dose 5 MG; Start 10/19/18 at 18:30 Famotidine (Pepcid) 20 mg Q12 PO Last administered on 10/29/18 09:25; Admin Dose 20 MG; Start 10/19/18 at 21:00 Fluticasone/ Vilanterol (Breo Ellipta 200-25 Mcg Inh) 1 inh DAILY INH Last administered on 10/29/18 09:23; Admin Dose 1 INH; Start 10/20/18 at 09:00 Gabapentin (Neurontin) 800 mg BID PO Last administered on 10/29/18 09:25; Admi n Dose 800 MG; Start 10/19/18 at 21:00 Hydrochlorothiazide (Hydrochlorothiazide) 12.5 mg DAILY PO Last administered on 10/29/18 09:28; Admin Dose 12.5 MG; Start 10/20/18 at 09:00 Lamotrigine (Lamictal) 150 mg BID PO Last administered on 10/29/18 09:26; Admin Dose 150 MG; Start 10/19/18 at 21:00 Phenytoin (Dilantin) 200 mg BID PO Last administered on 10/29/18 09:24; Admin Dose 200 MG; Start 10/19/18 at 21:00 Trazodone HCl (Desyrel) 100 mg QHS PO Last administered on 10/28/18 21:04; Admin Dose 100 MG; Start 10/19/18 at 21:00 Patient Own Medication 1 ea BID BOTH EYES Last administered on 10/27/18 09:09; Admin Dose 1 EA; Start 10/19/18 at 21:00 Patient Own Medication 1 ea QHS BOTH EYES Last administered on 10/26/18 20:18; Admin Dose 1 EA; Start 10/19/18 at 21:00 Albuterol (Ventolin Hfa) 2 puff Q4H PRN INH SHORTNESS OF BREATH Last administered on 10/25/18 21:49; Admin Dose 2 PUFF; Start 10/19/18 at 21:30 Amlodipine Besylate (Norvasc) 5 mg DAILY PO Last administered on 10/29/18 09:27; Admin Dose 5 MG; Start 10/20/18 at 12:00 Hydralazine HCl (Apresoline) 10 mg Q6H PRN IV SBP>170; Start 10/20/18 at 12:00 Hydromorphone HCl (Dilaudid) 0.5 mg Q4H PRN IV SEVERE PAIN LEVEL 7-10 Last adm inistered on 10/29/18 12:08; Admin Dose 0.5 MG; Start 10/20/18 at 13:30 Duloxetine HCl (Cymbalta) 60 mg BID PO Last administered on 10/29/18 09:27; Admin Dose 60 MG; Start 10/21/18 at 21:00 Acetaminophen/ Hydrocodone Bitart ([place] (5/325)) 1 tab Q4H PRN PO .PAIN 1-5 Last administered on 10/27/18 17:06; Admin Dose 1 TAB; Start 10/23/18 at 10:30 Al Hydrox/Mg Hydrox/Simethicone (Mag-Al Plus) 15 ml Q4H PRN PO .CONSTIPATION; Start 10/23/18 at 10:30 Docusate Sodium (Colace) 100 mg BID PO Last administered on 10/29/18 09:27; Admin Dose 100 MG; Start 10/23/18 at 12:00 Acetaminophen (Tylenol Tab) 650 mg Q4H PRN PO TEMP GREATER THAN 101F OR REYES; Start 10/23/18 at 10:30 IV Flush (NS 3 ml) 3 ml PER PROTOCOL IV ; Start 10/23/18 at 10:30 Naloxone HCl (Narcan) 0.2 mg Q2M PRN IV RR 8 BREATHS/MIN OR LESS; Start 10/23/18 at 10:30 Aripiprazole (Abilify) 15 mg DAILY PO Last administered on 10/29/18 09:25; Admin Dose 15 MG; Start 10/25/18 at 09:00 Lorazepam (Ativan) 1 mg Q6H PRN IV AGITATION/ANXIETY Last administered on 10/25/18 13:30; Admin Dose 1 MG; Start 10/24/18 at 17:30 Calcium Carbonate (Tums) 500 mg PC MEALS PO Last administered on 10/29/18 15:16; Admin Dose 500 MG; Start 10/27/18 at 18:35 Cefazolin Sodium/ Dextrose 50 ml @ 100 mls/hr Q8 IVPB Last administered on 10/29/18 15:16; Admin Dose 100 MLS/HR; Start 10/28/18 at 17:00 Acetaminophen/ Hydrocodone Bitart ([place] (5/325)) 2 tab Q4H PRN PO .SEVERE PAIN 7-10 Last administered on 10/29/18 15:17; Admin Dose 2 TAB; Start 10/29/18 at 14:30 MICK MCHUGH Oct 29, 2018 16:25
[2018-10-29] MEDS ORDERED: POTASSIUM CHLORIDE 20 MEQ POWDER FOR ORAL SOLN PO ONE (16:30)
[2018-10-29 19:40] VITALS: BP 147/69; PULSE 83; RESP 20
[2018-10-29] MEDS: traZODone 100 MG TAB PO SCH (21:14)
[2018-10-30] MEDS: HYDROmorphONE 0.5 MG/0.5 ML SYG IV PRN ×3 (01:36→11:26)
[2018-10-30] MEDS: HYDROCODONE/APAP (5/325) TAB PO PRN ×5 (04:57→22:03)
[2018-10-30] MEDS: CEFAZOLIN 2 GM/50 ML (PMX) 50 ML IVPB SCH ×3 (06:50→21:57)
[2018-10-30 07:25] VITALS: BP 141/66; PULSE 84; RESP 19
[2018-10-30] MEDS: SODIUM CHLORIDE 5% BOTH EYES SCH ×2 (09:00→21:00)
[2018-10-30] MEDS: DOCUSATE SODIUM 100 MG CAP PO SCH ×2 (09:00→21:56)
[2018-10-30] MEDS: LAMOTRIGINE 100 MG TAB PO SCH ×2 (09:33→21:56)
[2018-10-30] MEDS: CALCIUM CARBONATE 500 MG CHEW TAB PO SCH ×3 (09:33→18:10)
[2018-10-30] MEDS: ARIPIPRAZOLE 10 MG TAB PO SCH (09:34)
[2018-10-30] MEDS: GABAPENTIN 400 MG CAP PO SCH ×2 (09:34→21:56)
[2018-10-30] MEDS: FAMOTIDINE 20 MG TAB PO SCH (09:34)
[2018-10-30] MEDS: PHENYTOIN 100 MG CAP PO SCH ×2 (09:35→21:56)
[2018-10-30] MEDS: FLUTICASONE/VILANTEROL 200-25 INH DEVICE INH SCH (09:35)
[2018-10-30] MEDS: DULOXETINE 30 MG CAP DR PO SCH ×2 (09:35→21:56)
[2018-10-30] MEDS: AMLODIPINE 5 MG TAB PO SCH (09:36)
[2018-10-30] MEDS: HYDROCHLOROTHIAZIDE 12.5 MG CAP PO SCH (09:36)
[2018-10-30 09:51] VITALS: BP 134/65; PULSE 79; RESP 18
[2018-10-30] MEDS ORDERED: POTASSIUM CHLORIDE (SR) 20 MEQ TAB PO STA (11:04)
--- NOTE | 2018-10-30 11:04 | PN ---
Date/Time of Note Date/Time of Note DATE: 10/30/18 TIME: 11:02 Assessment/Plan VTE Prophylaxis Risk score (from Nsg)>0 risk: 6 SCD applied (from Nsg): Yes Lines/Catheters IV Catheter Type (from Nrsg): Saline Lock Urinary Cath still in place: No Assessment/Plan Assessment/Plan - Hypomagnesium - replace Mag - Hypokalemia - replace K -Intractable low back pain secondary to degenerative joint disease of the lumbar spine. S/p ALIF L2-S1 by Dr. Briggs and anterior retroperitoneal exposure interbody fusion of lumbosacral spine by Dr. Raphael on 10/23/18. S/p Left L2- S1 & Right L3-4 decompression with L2-S1 ISF Placement on 10/26/18. Continue Dilaudid and Toradol as needed for pain and Zofran as needed for nausea. Continue PT. -Anemia of acute blood loss, status post blood transfusion, monitor H&H. -Hypertension, patient is currently normotensive, continue hydralazine as needed. -Asthma, continue Brio Ellipta -Bipolar disorder, continue Cymbalta and Abilify Further recommendations based on clinical course. Plan of care discussed with Dr. Xavier. Result Diagram: 10/30/18 0436 10/30/18 0436 Results 24hrs Laboratory Tests Test 10/30/18 04:36 White Blood Count 9.6 Red Blood Count 2.65 L Hemoglobin 7.9 L Hematocrit 24.3 L Mean Corpuscular Volume 91.7 Mean Corpuscular Hemoglobin 29.8 Mean Corpuscular Hemoglobin Concent 32.5 Red Cell Distribution Width 13.4 Platelet Count 279 Mean Platelet Volume 8.9 Immature Granulocytes % 4.700 H Neutrophils % 68.9 Lymphocytes % 14.9 L Monocytes % 8.7 Eosinophils % 2.5 Basophils % 0.3 Nucleated Red Blood Cells % 0.2 H Immature Granulocytes # 0.450 H Neutrophils # 6.6 Lymphocytes # 1.4 Monocytes # 0.8 Eosinophils # 0.2 Basophils # 0.0 Nucleated Red Blood Cells # 0.0 Sodium Level 134 L Potassium Level 3.4 L Chloride Level 98 Carbon Dioxide Level 30 Anion Gap 6 Blood Urea Nitrogen 3 L Creatinine 0.38 L Est Glomerular Filtrat Rate mL/min > 60 Glucose Level 92 Calcium Level 8.5 Magnesium Level 1.5 L Subjective 24 Hr Interval Summary Free Text/Dictation PT- steps/walking in hallway Exam/Review of Systems Exam Vitals Vital Signs Date Temp Pulse Resp B/P (MAP) Pulse Ox O2 O2 Flow FiO2 Time Delivery Rate 10/30/18 79 18 134/65 09:51 (88) 10/30/18 98.5 96 07:25 10/30/18 2.0 07:02 10/29/18 Room Air 19:40 Intake and Output 10/29/18 10/29/18 10/30/18 1515:00 23:00 07:00 IntakeIntake Total 50 ml 850 ml 450 ml OutputOutput Total 300 ml BalanceBalance 50 ml 850 ml 150 ml Results Results 24hrs Laboratory Tests Test 10/30/18 04:36 White Blood Count 9.6 Red Blood Count 2.65 L Hemoglobin 7.9 L Hematocrit 24.3 L Mean Corpuscular Volume 91.7 Mean Corpuscular Hemoglobin 29.8 Mean Corpuscular Hemoglobin Concent 32.5 Red Cell Distribution Width 13.4 Platelet Count 279 Mean Platelet Volume 8.9 Immature Granulocytes % 4.700 H Neutrophils % 68.9 Lymphocytes % 14.9 L Monocytes % 8.7 Eosinophils % 2.5 Basophils % 0.3 Nucleated Red Blood Cells % 0.2 H Immature Granulocytes # 0.450 H Neutrophils # 6.6 Lymphocytes # 1.4 Monocytes # 0.8 Eosinophils # 0.2 Basophils # 0.0 Nucleated Red Blood Cells # 0.0 Sodium Level 134 L Potassium Level 3.4 L Chloride Level 98 Carbon Dioxide Level 30 Anion Gap 6 Blood Urea Nitrogen 3 L Creatinine 0.38 L Est Glomerular Filtrat Rate mL/min > 60 Glucose Level 92 Calcium Level 8.5 Magnesium Level 1.5 L Medications Medication Current Medications Ondansetron HCl (Zofran Inj) 4 mg Q6H PRN IV NAUSEA/VOMITING Last administered on 10/28/18at 03:03; Admin Dose 4 MG; Start 10/19/18 at 18:30 Docusate Sodium (Colace) 100 mg Q12H PRN PO .CONSTIPATION; Start 10/19/18 at 18:30 Zolpidem Tartrate (Ambien) 5 mg QHS PRN PO .INSOMNIA Last administered on 10/25/18at 21:28; Admin Dose 5 MG; Start 10/19/18 at 18:30 Famotidine (Pepcid) 20 mg Q12 PO Last administered on 10/30/18 09:34; Admin Dose 20 MG; Start 10/19/18 at 21:00 Fluticasone/ Vilanterol (Breo Ellipta 200-25 Mcg Inh) 1 inh DAILY INH Last administered on 10/30/18 09:35; Admin Dose 1 INH; Start 10/20/18 at 09:00 Gabapentin (Neurontin) 800 mg BID PO Last administered on 10/30/18 09:34; Admin Dose 800 MG; Start 10/19/18 at 21:00 Hydrochlorothiazide (Hydrochlorothiazide) 12.5 mg DAILY PO Last administered on 10/30/18 09:36; Admin Dose 12.5 MG; Start 10/20/18 at 09:00 Lamotrigine (Lamictal) 150 mg BID PO Last administered on 10/30/18 09:33; Admin Dose 150 MG; Start 10/19/18 at 21:00 Phenytoin (Dilantin) 200 mg BID PO Last administered on 10/30/18 09:35; Admin Dose 200 MG; Start 10/19/18 at 21:00 Trazodone HCl (Desyrel) 100 mg QHS PO Last administered on 10/29/18 21:14; Admin Dose 100 MG; Start 10/19/18 at 21:00 Patient Own Medication 1 ea BID BOTH EYES Last administered on 10/27/18 09:09; Admin Dose 1 EA; Start 10/19/18 at 21:00 Patient Own Medication 1 ea QHS BOTH EYES Last administered on 10/26/18 20:18; Admin Dose 1 EA; Start 10/19/18 at 21:00 Albuterol (Ventolin Hfa) 2 puff Q4H PRN INH SHORTNESS OF BREATH Last administered on 10/25/18 21:49; Admin Dose 2 PUFF; Start 10/19/18 at 21:30 Amlodipine Besylate (Norvasc) 5 mg DAILY PO Last administered on 10/30/18 09:36; Admin Dose 5 MG; Start 10/20/18 at 12:00 Hydralazine HCl (Apresoline) 10 mg Q6H PRN IV SBP>170; Start 10/20/18 at 12:00 Hydromorphone HCl (Dilaudid) 0.5 mg Q4H PRN IV SEVERE PAIN LEVEL 7-10 Last administered on 10/30/18 06:54; Admin Dose 0.5 MG; Start 10/20/18 at 13:30 Duloxetine HCl (Cymbalta) 60 mg BID PO Last administered on 10/30/18 09:35; Admin Dose 60 MG; Start 10/21/18 at 21:00 Acetaminophen/ Hydrocodone Bitart ([place] (5/325)) 1 tab Q4H PRN PO .PAIN 1-5 Last administered on 10/27/18 17:06; Admin Dose 1 TAB; Start 10/23/18 at 10:30 Al Hydrox/Mg Hydrox/Simethicone (Mag-Al Plus) 15 ml Q4H PRN PO .CONSTIPATION; Start 10/23/18 at 10:30 Docusate Sodium (Colace) 100 mg BID PO Last administered on 10/29/18 09:27; Admin Dose 100 MG; Start 10/23/18 at 12:00 Acetaminophen (Tylenol Tab) 650 mg Q4H PRN PO TEMP GREATER THAN 101F OR REYES; Start 10/23/18 at 10:30 IV Flush (NS 3 ml) 3 ml PER PROTOCOL IV ; Start 10/23/18 at 10:30 Naloxone HCl (Narcan) 0.2 mg Q2M PRN IV RR 8 BREATHS/MIN OR LESS; Start 10/23/18 at 10:30 Aripiprazole (Abilify) 15 mg DAILY PO Last administered on 10/30/18 09:34; Admin Dose 15 MG; Start 10/25/18 at 09:00 Lorazepam (Ativan) 1 mg Q6H PRN IV AGITATION/ANXIETY Last administered on 10/25/18 13:30; Admin Dose 1 MG; Start 10/24/18 at 17:30 Calcium Carbonate (Tums) 500 mg PC MEALS PO Last administered on 10/30/18 09:33; Admin Dose 500 MG; Start 10/27/18 at 18:35 Cefazolin Sodium/ Dextrose 50 ml @ 100 mls/hr Q8 IVPB Last administered on 10/30/18 06:50; Admin Dose 100 MLS/HR; Start 10/28/18 at 17:00 Acetaminophen/ Hydrocodone Bitart ([place] (5/325)) 2 tab Q4H PRN PO .SEVERE PAIN 7-10 Last administered on 10/30/18at 09:37; Admin Dose 2 TAB; Start 10/29/18 at 14:30 Simethicone (Mylicon) 80 mg TID PRN PO DISTENSION/GAS/BLOATING; Start 10/29/18 at 17:30 SERVANDO CUETO Oct 30, 2018 11:04
[2018-10-30] MEDS ORDERED: MAGNESIUM SULFATE 1 GM/D5W 100 ML IVPB ONE (12:30)
[2018-10-30] MEDS: FERROUS SULFATE (EC) 325 MG TAB PO SCH (12:31)
[2018-10-30 14:30] VITALS: BP 136/62; PULSE 82; RESP 19
[2018-10-30] MEDS ORDERED: KETOROLAC 15 MG INJ IV STA (16:19)
[2018-10-30 20:00] VITALS: BP 127/59; PULSE 86; RESP 18
[2018-10-30] MEDS: traZODone 100 MG TAB PO SCH (21:56)
[2018-10-31] MEDS: HYDROCODONE/APAP (5/325) TAB PO PRN ×3 (02:09→10:26)
[2018-10-31 02:45] VITALS: BP 136/58; PULSE 89; RESP 18
[2018-10-31] MEDS ORDERED: PANTOPRAZOLE (EC) 40 MG TAB PO SCH (06:00)
[2018-10-31] MEDS: CEFAZOLIN 2 GM/50 ML (PMX) 50 ML IVPB SCH ×2 (06:07→14:16)
[2018-10-31 08:22] VITALS: BP 123/81; PULSE 76; RESP 18
[2018-10-31] MEDS: GABAPENTIN 400 MG CAP PO SCH (08:25)
[2018-10-31] MEDS: DULOXETINE 30 MG CAP DR PO SCH (08:26)
[2018-10-31] MEDS: PHENYTOIN 100 MG CAP PO SCH (08:27)
[2018-10-31] MEDS: FERROUS SULFATE (EC) 325 MG TAB PO SCH (08:27)
[2018-10-31] MEDS: DOCUSATE SODIUM 100 MG CAP PO SCH (08:28)
[2018-10-31] MEDS: CALCIUM CARBONATE 500 MG CHEW TAB PO SCH ×3 (08:28→18:55)
[2018-10-31] MEDS: ARIPIPRAZOLE 10 MG TAB PO SCH (08:28)
[2018-10-31] MEDS: LAMOTRIGINE 100 MG TAB PO SCH (08:29)
[2018-10-31] MEDS: AMLODIPINE 5 MG TAB PO SCH (08:30)
[2018-10-31] MEDS: HYDROCHLOROTHIAZIDE 12.5 MG CAP PO SCH (08:30)
[2018-10-31] MEDS: FLUTICASONE/VILANTEROL 200-25 INH DEVICE INH SCH (08:35)
[2018-10-31] MEDS: SODIUM CHLORIDE 5% BOTH EYES SCH (09:00)
[2018-10-31] MEDS ORDERED: OXYCODONE/ACETAMINOPHEN (5/325) TAB PO PRN (11:00)
--- NOTE | 2018-10-31 12:43 | PN ---
Date/Time of Note Date/Time of Note DATE: 10/31/18 TIME: 12:43 Assessment/Plan VTE Prophylaxis Risk score (from Nsg)>0 risk: 5 SCD applied (from Ns): Yes Pharmacological prophylaxis: LMWH Lines/Catheters IV Catheter Type (from Nrsg): Saline Lock Urinary Cath still in place: No Assessment/Plan Hospital Course - Hypomagnesium - replace Mag - Hypokalemia - replace K -Intractable low back pain secondary to degenerative joint disease of the lumbar spine. S/p ALIF L2-S1 by Dr. Briggs and anterior retroperitoneal exposure interbody fusion of lumbosacral spine by Dr. Raphael on 10/23/18. S/p Left L2- S1 & Right L3-4 decompression with L2-S1 ISF Placement on 10/26/18. Continue Dilaudid and Toradol as needed for pain and Zofran as needed for nausea. Continue PT. -Anemia of acute blood loss, status post blood transfusion, monitor H&H. -Hypertension, patient is currently normotensive, continue hydralazine as needed. -Asthma, continue Brio Ellipta -Bipolar disorder, continue Cymbalta and Abilify Result Diagram: 10/31/18 0505 10/31/18 0505 Results 24hrs Laboratory Tests Test 10/31/18 05:05 White Blood Count 9.3 Red Blood Count 2.69 L Hemoglobin 8.2 L Hematocrit 24.6 L Mean Corpuscular Volume 91.4 Mean Corpuscular Hemoglobin 30.5 Mean Corpuscular Hemoglobin Concent 33.3 Red Cell Distribution Width 13.7 Platelet Count 302 Mean Platelet Volume 8.9 Immature Granulocytes % 3.500 H Neutrophils % 68.5 Lymphocytes % 16.0 Monocytes % 9.4 Eosinophils % 2.3 Basophils % 0.3 Nucleated Red Blood Cells % 0.3 H Immature Granulocytes # 0.330 H Neutrophils # 6.4 Lymphocytes # 1.5 Monocytes # 0.9 Eosinophils # 0.2 Basophils # 0.0 Nucleated Red Blood Cells # 0.0 Sodium Level 136 Potassium Level 3.4 L Chloride Level 97 Carbon Dioxide Level 32 H Anion Gap 7 Blood Urea Nitrogen 3 L Creatinine 0.41 L Est Glomerular Filtrat Rate mL/min > 60 Glucose Level 103 Calcium Level 8.4 Magnesium Level 1.7 Iron Level 10 L Total Iron Binding Capacity 247 Percent Iron Saturation 4 L Subjective 24 Hr Interval Summary Free Text/Dictation Patient is concerned regarding drainage from wound Exam/Review of Systems Exam Vitals Vital Signs Date Temp Pulse Resp B/P (MAP) Pulse Ox O2 O2 Flow FiO2 Time Delivery Rate 10/31/18 98.4 76 18 123/81 93 08:22 (95) 10/31/18 2.0 04:42 10/29/18 Room Air 19:40 Intake and Output 10/30/18 10/30/18 10/31/18 1515:00 23:00 07:00 IntakeIntake Total 870 ml 720 ml 50 ml OutputOutput Total 650 ml BalanceBalance 220 ml 720 ml 50 ml Constitutional: well developed Head: normocephalic, atraumatic Neck: supple Respiratory: clear to auscultation Cardiovascular: regular rate and rhythm Gastrointestinal: soft, non-tender Extremities: normal pulses Results Results 24hrs Laboratory Tests Test 10/31/18 05:05 White Blood Count 9.3 Red Blood Count 2.69 L Hemoglobin 8.2 L Hematocrit 24.6 L Mean Corpuscular Volume 91.4 Mean Corpuscular Hemoglobin 30.5 Mean Corpuscular Hemoglobin Concent 33.3 Red Cell Distribution Width 13.7 Platelet Count 302 Mean Platelet Volume 8.9 Immature Granulocytes % 3.500 H Neutrophils % 68.5 Lymphocytes % 16.0 Monocytes % 9.4 Eosinophils % 2.3 Basophils % 0.3 Nucleated Red Blood Cells % 0.3 H Immature Granulocytes # 0.330 H Neutrophils # 6.4 Lymphocytes # 1.5 Monocytes # 0.9 Eosinophils # 0.2 Basophils # 0.0 Nucleated Red Blood Cells # 0.0 Sodium Level 136 Potassium Level 3.4 L Chloride Level 97 Carbon Dioxide Level 32 H Anion Gap 7 Blood Urea Nitrogen 3 L Creatinine 0.41 L Est Glomerular Filtrat Rate mL/min > 60 Glucose Level 103 Calcium Level 8.4 Magnesium Level 1.7 Iron Level 10 L Total Iron Binding Capacity 247 Percent Iron Saturation 4 L Medications Medication Current Medications Ondansetron HCl (Zofran Inj) 4 mg Q6H PRN IV NAUSEA/VOMITING Last administered on 10/28/18at 03:03; Admin Dose 4 MG; Start 10/19/18 at 18:30 Docusate Sodium (Colace) 100 mg Q12H PRN PO .CONSTIPATION; Start 10/19/18 at 18:30 Zolpidem Tartrate (Ambien) 5 mg QHS PRN PO .INSOMNIA Last administered on 10/25/18 21:28; Admin Dose 5 MG; Start 10/19/18 at 18:30 Fluticasone/ Vilanterol (Breo Ellipta 200-25 Mcg Inh) 1 inh DAILY INH Last administered on 10/31/18 08:35; Admin Dose 1 INH; Start 10/20/18 at 09:00 Gabapentin (Neurontin) 800 mg BID PO Last administered on 10/31/18 08:25; Adm in Dose 800 MG; Start 10/19/18 at 21:00 Hydrochlorothiazide (Hydrochlorothiazide) 12.5 mg DAILY PO Last administered on 10/31/18 08:30; Admin Dose 12.5 MG; Start 10/20/18 at 09:00 Lamotrigine (Lamictal) 150 mg BID PO Last administered on 10/31/18 08:29; Admin Dose 150 MG; Start 10/19/18 at 21:00 Phenytoin (Dilantin) 200 mg BID PO Last administered on 10/31/18 08:27; Admin Dose 200 MG; Start 10/19/18 at 21:00 Trazodone HCl (Desyrel) 100 mg QHS PO Last administered on 10/30/18 21:56; Admin Dose 100 MG; Start 10/19/18 at 21:00 Patient Own Medication 1 ea BID BOTH EYES Last administered on 10/27/18 09:09; Admin Dose 1 EA; Start 10/19/18 at 21:00 Patient Own Medication 1 ea QHS BOTH EYES Last administered on 10/26/18 20:18; Admin Dose 1 EA; Start 10/19/18 at 21:00 Albuterol (Ventolin Hfa) 2 puff Q4H PRN INH SHORTNESS OF BREATH Last administered on 10/25/18 21:49; Admin Dose 2 PUFF; Start 10/19/18 at 21:30 Amlodipine Besylate (Norvasc) 5 mg DAILY PO Last administered on 10/31/18 08:3 0; Admin Dose 5 MG; Start 10/20/18 at 12:00 Hydralazine HCl (Apresoline) 10 mg Q6H PRN IV SBP>170; Start 10/20/18 at 12:00 Hydromorphone HCl (Dilaudid) 0.5 mg Q4H PRN IV SEVERE PAIN LEVEL 7-10 Last ad ministered on 10/30/18 11:26; Admin Dose 0.5 MG; Start 10/20/18 at 13:30 Duloxetine HCl (Cymbalta) 60 mg BID PO Last administered on 10/31/18 08:26; Admin Dose 60 MG; Start 10/21/18 at 21:00 Al Hydrox/Mg Hydrox/Simethicone (Mag-Al Plus) 15 ml Q4H PRN PO .CONSTIPATION; Start 10/23/18 at 10:30 Docusate Sodium (Colace) 100 mg BID PO Last administered on 10/31/18 08:28; Admin Dose 100 MG; Start 10/23/18 at 12:00 Acetaminophen (Tylenol Tab) 650 mg Q4H PRN PO TEMP GREATER THAN 101F OR REYES; Start 10/23/18 at 10:30 IV Flush (NS 3 ml) 3 ml PER PROTOCOL IV ; Start 10/23/18 at 10:30 Naloxone HCl (Narcan) 0.2 mg Q2M PRN IV RR 8 BREATHS/MIN OR LESS; Start 10/23/18 at 10:30 Aripiprazole (Abilify) 15 mg DAILY PO Last administered on 10/31/18 08:28; Admin Dose 15 MG; Start 10/25/18 at 09:00 Lorazepam (Ativan) 1 mg Q6H PRN IV AGITATION/ANXIETY Last administered on 10/25/18 13:30; Admin Dose 1 MG; Start 10/24/18 at 17:30 Calcium Carbonate (Tums) 500 mg PC MEALS PO Last administered on 10/31/18 08:28; Admin Dose 500 MG; Start 10/27/18 at 18:35 Cefazolin Sodium/ Dextrose 50 ml @ 100 mls/hr Q8 IVPB Last administered on 10/31/18 06:07; Admin Dose 100 MLS/HR; Start 10/28/18 at 17:00 Simethicone (Mylicon) 80 mg TID PRN PO DISTENSION/GAS/BLOATING; Start 10/29/18 at 17:30 Ferrous Sulfate (Ferrous Sulfate (Ec)) 325 mg DAILY PO Last administered on 4/20/19at 08:27; Admin Dose 325 MG; Start 10/30/18 at 11:30 Pantoprazole (Protonix Tab) 40 mg DAILY@06 PO Last administered on 10/31/18at 0 6:07; Admin Dose 40 MG; Start 10/31/18 at 06:00 Oxycodone/ Acetaminophen (Percocet (5/ 325)) 1 tab Q4H PRN PO MODERATE PAIN LEVEL 4-6; Start 10/31/18 at 11:00 Oxycodone/ Acetaminophen (Percocet (5/ 325)) 2 tab Q4H PRN PO PAIN LEVEL 7-10; Start 10/31/18 at 11:00 JOSTIN NOONAN Oct 31, 2018 12:43
[2018-10-31] MEDS: OXYCODONE/ACETAMINOPHEN (5/325) TAB PO PRN ×2 (14:18→18:25)
[2018-10-31 15:26] VITALS: BP 118/64; PULSE 87; RESP 18
== END 2018-10-31 18:50 | DRG 454 ==
LOC: E/R 11:09 → MS1 15:02 → ICU 10-23 11:10 → MS1 10-27 17:19
PROVIDERS: ADMIT Internal Medicine; ATTEND Internal Medicine
PROC: 0SG30A0 Fusion of Lumbosacral Joint with Interbody Fusion Device, Anterior Approach, Anterior Column, Open Approach (ICD-10-PCS; 2018-10-23)
PROC: 0SB20ZZ Excision of Lumbar Vertebral Disc, Open Approach (ICD-10-PCS; 2018-10-23)
PROC: 0SB40ZZ Excision of Lumbosacral Disc, Open Approach (ICD-10-PCS; 2018-10-23)
PROC: 0SG10A0 Fusion of 2 or more Lumbar Vertebral Joints with Interbody Fusion Device, Anterior Approach, Anterior Column, Open Approach (ICD-10-PCS; principal; 2018-10-23 08:00)
PROC: 0SG10K1 Fusion of 2 or more Lumbar Vertebral Joints with Nonautologous Tissue Substitute, Posterior Approach, Posterior Column, Open Approach (ICD-10-PCS; 2018-10-26)
PROC: 01NB0ZZ Release Lumbar Nerve, Open Approach (ICD-10-PCS; 2018-10-26)
PROC: 0SG30K1 Fusion of Lumbosacral Joint with Nonautologous Tissue Substitute, Posterior Approach, Posterior Column, Open Approach (ICD-10-PCS; 2018-10-26)
PROC: 01BB0ZZ Excision of Lumbar Nerve, Open Approach (ICD-10-PCS; 2018-10-26)
PROC: 30233N1 Transfusion of Nonautologous Red Blood Cells into Peripheral Vein, Percutaneous Approach (ICD-10-PCS; 2018-10-27)
DX: M51.17 Intervertebral disc disorders with radiculopathy, lumbosacral region (principal); D62 Acute posthemorrhagic anemia; M47.26 Other spondylosis with radiculopathy, lumbar region; E83.42 Hypomagnesemia; E87.6 Hypokalemia; E66.9 Obesity, unspecified; E88.2 Lipomatosis, not elsewhere classified; F31.9 Bipolar disorder, unspecified; G89.4 Chronic pain syndrome; G89.18 Other acute postprocedural pain; I10 Essential (primary) hypertension; J45.909 Unspecified asthma, uncomplicated; M71.38 Other bursal cyst, other site; R20.2 Paresthesia of skin; Z68.31 Body mass index [BMI] 31.0-31.9, adult; Z87.820 Personal history of traumatic brain injury; Z87.891 Personal history of nicotine dependence; Z79.1 Long term (current) use of non-steroidal anti-inflammatories (NSAID)
CPT/HCPCS: 36415; 36430; 71045; 72100; 72131; 80048; 80053; 83540; 83735; 84100; 85014; 85018; 85025; 85610; 85730; 86850; 86900; 86901; 86920; 87081; 88304; 88311; 93005; 97110; 97116; 97162; 97165; 97530; 97535; C1762; J0400; J0690; J1100; J1170; J1644; J1885; J2060; J2250; J2270; J2370; J2405; J2795; J3010; J3370; J3475; J3480; J7040; P9016